=== PATIENT | female | born 1990 | race Caucasian/White ===

== ENCOUNTER 2018-08-17 11:02 | Inpatient (IN) | payer OTHER ==
[2018-08-17 11:11] VITALS: BMI 24.9
[2018-08-17] MEDS ORDERED: diphenhydrAMINE HCL 25 MG CAPSULE (FP) PO ONE ×2 (11:20→11:26)
--- NOTE | 2018-08-17 11:20 | PDOC ---
History of Present Illness - General History Source: Patient Exam Limitations: No Limitations - History of Present Illness Initial Comments: 08/17/18 11:30 The patient is a 28 year old female, with a significant PMH of lupus, acne (on Cephalexin for 3 weeks), who presents to the emergency department via walk-in with shortness of breath, chest tightness, generalized itchiness, tingling in fingertips beginning approx 2 hours ago. The patient states this morning she took her Amoxicillin antibiotics together with her Cephalexin antibiotics around 9 am and began experiencing the allergic reaction-like symptoms after. The patient states she was started on Amoxicillin 3 days ago for a throat infection along with Tamiflu for complaints of body aches, fevers and chills which began on Tuesday. The patient states prior to arrival she took 25 mg Benadryl PO with minimal relief of her symptoms approx 1 hour ago. The patient denies chest pain, palpitations, headache and dizziness. Denies recent fever, chills, nausea, vomit, diarrhea and constipation. Denies dysuria, frequency, urgency and hematuria. Allergies: NKA <Wild Gastelum - Last Filed: 08/17/18 15:28> <Jerardo Winters - Last Filed: 08/17/18 17:14> - General Chief Complaint: Allergic Reaction Stated Complaint: ALLERGIC REACTION Time Seen by Provider: 08/17/18 11:15 Past History <Wild Gastelum - Last Filed: 08/17/18 15:28> - Past Medical History COPD: No Other medical history: lupus - Suicide/Smoking/Psychosocial Hx Smoking History: Never smoked Have you smoked in the past 12 months: No Information on smoking cessation initiated: No Hx Alcohol Use: No Drug/Substance Use Hx: No Substance Use Type: None <Jerardo Winters - Last Filed: 08/17/18 17:14> - Past Medical History Allergies/Adverse Reactions: Allergies Allergy/AdvReac Type Severity Reaction Status Date / Time No Known Allergies Allergy Verified 08/17/18 11:05 Review of Systems - Review of Systems Comments:: 08/17/18 11:32 A complete review of 10 out of 10 review of systems is taken and is negative apart from what is previously mentioned below and in the HPI. <Wild Gastelum - Last Filed: 08/17/18 15:28> *Physical Exam - Vital Signs Last Vital Signs Temp Pulse Resp BP Pulse Ox 98.0 F 91 H 18 126/68 100 08/17/18 11:05 08/17/18 11:05 08/17/18 11:05 08/17/18 11:05 08/17/18 11:05 - Physical Exam Comments: 08/17/18 11:32 Vitals: Triage vital signs reviewed General Appearance: (+) Anxious. No acute distress, well nourished, well developed Head: Atraumatic Eyes: Pupils equal reactive round, extraocular movement intact Nose: Nares patent bilaterally; no nasal congestion Throat: Posterior oropharynx without erythema, mucous membranes moist Neck: Supple; No nuchal rigidity Chest Wall: Nontender Cardiac: Regular rate and rhythm, no murmurs, no rubs, no gallops Lungs: Clear to auscultation bilateral, good air movement bilaterally Abdomen: Soft, nondistended, normal bowel sounds, nontender to palpation Rectal: Exam deferred Extremities: Full range of motion to all extremities, no cyanosis, clubbing, or edema Skin: Warm and dry, no rashes or lesions, no rash, no petechiae Neuro: AOX3; Cranial Nerves 2-12 grossly intact, Strength intact to all extremities, Sensation intact to all extremities Psych: Normal mood, normal affect <Wild Gastelum - Last Filed: 08/17/18 15:28> - Vital Signs Last Vital Signs Temp Pulse Resp BP Pulse Ox 98.0 F 91 H 18 126/68 100 08/17/18 11:05 08/17/18 11:05 08/17/18 11:05 08/17/18 11:05 08/17/18 11:05 <Jerardo Winters - Last Filed: 08/17/18 17:14> ED Treatment Course - LABORATORY CBC & Chemistry Diagram: 08/17/18 12:53 08/17/18 12:53 - Medications Given in the ED: ED Medications Discontinued Medications Generic Name Dose Route Start Last Admin Trade Name Freq PRN Reason Stop Dose Admin Diphenhydramine HCl 25 mg 08/17/18 11:20 08/17/18 11:29 Benadryl - PO 08/17/18 11:21 25 mg ONCE ONE Administration <Wild Gastelum - Last Filed: 08/17/18 15:28> - LABORATORY CBC & Chemistry Diagram: 08/17/18 12:53 08/17/18 12:53 <Jerardo Winters - Last Filed: 08/17/18 17:14> Medical Decision Making - Medical Decision Making 08/17/18 11:32 Patient is a 28 year old female, with history of lupus, acne (on Cephalexin for 3 weeks), presents to the emergency department via walk-in with shortness of breath, chest tightness, generalized itchiness, tingling in fingertips beginning approx 2 hours ago. Plan: Meds, O2 therapy. <Wild Gastelum - Last Filed: 08/17/18 15:28> - Critical Care Time Total Critical Care Time (minutes): 45 Critical Care Statement: The care of this patient involved high complexity decision making to prevent further life threatening deterioration of the patient 's condition and/or to evaluate & treat vital organ system(s) failure or risk of failure. - Medical Decision Making 28 years old healthy except for lupus and acne presents with now six-day history of fever chills body aches headache neckache. Neck is supple on examination patient has been treated with amoxicillin and Tamiflu. Low suspicion at this time for bacterial meningitis Yesterday patient was afebrile today fever returned. Recent travel to [place] endorses bug bites no known tick exposures On examination patient with chills laboratory analysis demonstrates neutropenia not neutropenic, rectal temperature was 100.4 Dr. Mccracken infectious disease consulted, no indication for LP at this time given duration of symptoms more likely diagnosis her differential diagnosis is viral illness vrs parasite illness vrs HIV Blood cultures have been sent broad-spectrum antibiotics have been started infectious disease will consult. Reconsider LP if any change in patient's clinical presentation We'll to medicine/ICU for further management. <Jerardo Winters - Last Filed: 08/17/18 17:14> *DC/Admit/Observation/Transfer - Attestations Scribe Attestion: 08/17/18 11:34 Documentation prepared by Wild Gastelum, acting as medical biller/coder for Jerardo Winters MD. <Wild Gastelum - Last Filed: 08/17/18 15:28> - Discharge Dispostion Decision to Admit order: Yes <Jerardo Winters - Last Filed: 08/17/18 17:14> Diagnosis at time of Disposition: Fever Qualifiers: Fever type: unspecified Qualified Code(s): R50.9 - Fever, unspecified - Discharge Dispostion Condition at time of disposition: Fair
[2018-08-17] MEDS ORDERED: SODIUM CHLORIDE 0.9% 1000 ML INFUS.BAG IV ONE ×2 (12:36→15:41)
[2018-08-17] MEDS ORDERED: ACETAMINOPHEN 1000 MG/100 ML VIAL (NON FORMULARY) IVPB ONE (12:55)
[2018-08-17] MEDS ORDERED: ACETAMINOPHEN INJECTION 100 ML IVPB ONE (12:58)
[2018-08-17 13:04] LABS: BASO % 0.3 % (0-2.0); EOS % 0.1 % (0-4.5); HEMATOCRIT 38.8 % (32.4-45.2); HEMOGLOBIN 12.8 GM/dL (10.7-15.3); LYMPH % 28.4 % (8-40); MCH 26.3 pg (25.7-33.7); MCHC 32.9 g/dl (32.0-36.0); MEAN CELL VOLUME 79.9 fl (80-96); MEAN PLT VOLUME 7.4 fl (7.5-11.1); MONO % 0.5 % (3.8-10.2); NEUT % 70.7 % (42.8-82.8); PLATELET COUNT 253 K/MM3 (134-434); RBC 4.86 M/mm3 (3.60-5.2); RDW 12.7 % (11.6-15.6)
[2018-08-17 13:26] LABS: WHITE BLOOD COUNT 0.8 K/mm3 (4.0-10.0)
[2018-08-17 13:45] LABS: ALK PHOS 96 U/L (45-117); ANION GAP 10 MMOL/L (8-16); BILIRUBIN,TOTAL 0.3 mg/dL (0.2-1); BLOOD UREA NITROGEN 18 mg/dL (7-18); CALCIUM 8.5 mg/dL (8.5-10.1); CHLORIDE 101 mmol/L (98-107); CO2 24 mmol/L (21-32); CREATININE 0.8 mg/dL (0.55-1.3); GLUCOSE,RANDOM 100 mg/dL (74-106); POTASSIUM 3.7 mmol/L (3.5-5.1); SGOT/AST 108 U/L (15-37); SGPT/ALT 100 U/L (13-61); SODIUM 136 mmol/L (136-145); TOT PROT 7.5 g/dl (6.4-8.2)
[2018-08-17 14:30] LABS: ACANTHOCYTES 0; ANISOCYTOSIS 0; HELMET CELLS 0; HOWELL-JOLLY BODIES 0; MACROCYTOSIS 0; OVALOCYTE 0; PLATELET ESTIMATE NORMAL; ROULEAU 0; SICKELED CELLS 0; TARGET CELLS 0; TEAR DROP CELLS 0; TOXIC GRANULATION 0
[2018-08-17 14:56] LABS: HCG,QUALITATIVE URINE Negative
[2018-08-17] MEDS ORDERED: VANCOMYCIN 1 GM PREMIX - 1 GM/200 ML BAG IVPB ONE (14:56)
[2018-08-17] MEDS ORDERED: PIPERACILLIN/TAZOB 3.375 GM 3.375 GM in DEXTROSE 5%-WATER - 50 ML IVPB ONE (14:56)
[2018-08-17 15:03] LABS: URINE APPEARANCE SLCLOUDY; URINE BILIRUBIN NEGATIVE (<2.0 mg/dL); URINE COLOR LTYELLOW; URINE GLUCOSE (UA) NEGATIVE (NEGATIVE); URINE KETONE NEGATIVE (NEGATIVE); URINE NITRITE NEGATIVE (NEGATIVE); URINE PROTEIN NEGATIVE (NEGATIVE); URINE UROBILINOGEN NEGATIVE mg/dL (0.2-1.0)
[2018-08-17 15:07] LABS: URINE LEUK ESTERASE 2+ (NEGATIVE)
[2018-08-17 15:08] LABS: EPI CELLS FEW /HPF (FEW); URINE HYALINE CAST 1 /lpf
[2018-08-17] MEDS ORDERED: PIPERACILLIN/TAZOB 3.375 GM 3.375 GM/50 ML BAG IVPB ONE ×2 (15:17→15:25)
--- NOTE | 2018-08-17 15:36 | HP ---
CHIEF COMPLAINT: Generalized itchiness, SOB PCP: None HISTORY OF PRESENT ILLNESS: 28 year-old female with a PMH significant for Hepatitis B, lupus and acne presented to the ED via walk-in with shortness of breath, chest tightness, generalized itchiness, and tingling in fingertips x 2 hours. The patient stated this morning she took prescribed amoxicillin together with prescribed cephalexin and very shortly thereafter began experiencing the allergic reaction -like symptoms. Today was the first day that she took those two antibiotics on the same day. She took benadryl PO at home with minimal relief so she came to the ED. While in ED patient developed rigors. The patient was prescribed cephalexin about 3 weeks ago for an acne flare. She took the medication without any problem up until 08/19. She resumed the medication this morning. Patient traveled to [place] on 08/06. On 08/12 while still in [place] she developed a sore throat, headache, body aches, subjective fever and chills. She was prescribed amoxicillin and Tamiflu which she started that day and has continued every day since. On 08/13 she flew back to [place]. On 08/14 she went to an urgent care and was prescribed amoxicillin and Tamiflu. While in [place] she had multiple bug bites which she thinks were mosquito bites. She traveled with her boyfriend who is well. At the time of this ICU admission patient has developed a full-body erythematous rash, face, arms, legs. She complains of worsening sore throat and she has a mild cough. Emergent benadryl, solumedrol, pepcid, and albuterol being given. Additional peripheral access. Received 2L NS in ED, will bolus another 2L now. 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 Alcohol: no Drugs: no Family History: Allergies No Known Allergies Allergy (Verified 08/17/18 11:05) HOME MEDICATIONS: On no regular medications REVIEW OF SYSTEMS CONSTITUTIONAL: Present: +fever, chills Absent: diaphoresis, generalized weakness, malaise, loss of appetite, weight change HEENT: Present: +sore throat Absent: rhinorrhea, nasal congestion, throat swelling, difficulty swallowing, mouth swelling, ear pain, eye pain, visual changes CARDIOVASCULAR: Absent: chest pain, syncope, palpitations, irregular heart rate, lightheadedness , peripheral edema RESPIRATORY: Present: +SOB Absent: cough, dyspnea with exertion, orthopnea, wheezing, stridor, hemoptysis GASTROINTESTINAL: Absent: abdominal pain, abdominal distension, nausea, vomiting, diarrhea, constipation, melena, hematochezia GENITOURINARY: Absent: dysuria, frequency, urgency, hesitancy, hematuria, flank pain, genital pain MUSCULOSKELETAL: Present: +body aches Absent: myalgia, arthralgia, joint swelling, back pain, neck pain SKIN: Present: +rash, itching Absent: rash, itching, pallor HEMATOLOGIC/IMMUNOLOGIC: Absent: easy bleeding, easy bruising, lymphadenopathy, frequent infections ENDOCRINE: Absent: unexplained weight gain, unexplained weight loss, heat intolerance, cold intolerance NEUROLOGIC: Present: +headache Absent: headache, focal weakness or paresthesias, dizziness, unsteady gait, seizure, mental status changes, bladder or bowel incontinence PSYCHIATRIC: Absent: anxiety, depression, suicidal or homicidal ideation, hallucinations. PHYSICAL EXAMINATION Vital Signs - 24 hr 08/17/18 08/17/18 08/17/18 11:05 12:48 13:06 Temperature 98.0 F 100.4 F H 100.4 F H Pulse Rate 91 H Respiratory 18 Rate Blood Pressure 126/68 O2 Sat by Pulse 100 Oximetry (%) GENERAL: Awake, alert, and fully oriented; in mild distress secondary to itching and body aches HEAD: Lips mildly swollen, erythematous rash across face EYES: Pupils equal, round and reactive to light, extraocular movements intact, sclera anicteric, conjunctiva clear. No lid lag. EARS, NOSE, THROAT: Ears normal, nares patent, oropharynx clear without exudates. Moist mucous membranes. No tongue swelling NECK: Normal range of motion, supple without lymphadenopathy, JVD, or masses. LUNGS: Breath sounds equal, clear to auscultation bilaterally. No wheezes, and no crackles. No accessory muscle use. HEART: Regular rate and rhythm, normal S1 and S2 without murmur, rub or gallop. ABDOMEN: Soft, nontender, not distended MUSCULOSKELETAL: Normal range of motion at all joints. No bony deformities or tenderness. No CVA tenderness. UPPER EXTREMITIES: 2+ pulses, warm, well-perfused. No cyanosis. No clubbing. No peripheral edema. LOWER EXTREMITIES: 2+ pulses, warm, well-perfused. No calf tenderness. No peripheral edema. NEUROLOGICAL: Cranial nerves II-XII intact. Normal speech. SKIN: Erythematous rash face, arms, legs Laboratory Results - last 24 hr 08/17/18 08/17/18 08/17/18 12:53 12:53 14:31 WBC 0.8 L* RBC 4.86 Hgb 12.8 Hct 38.8 MCV 79.9 L MCH 26.3 MCHC 32.9 RDW 12.7 Plt Count 253 MPV 7.4 L Absolute Neuts (auto) 0.6 L Neutrophils % 70.7 Neutrophils % (Manual) 58.3 Band Neutrophils % 8.3 Lymphocytes % 28.4 Lymphocytes % (Manual) 25.0 Monocytes % 0.5 L Monocytes % (Manual) 4 Eosinophils % 0.1 Eosinophils % (Manual) 0.0 Basophils % 0.3 Basophils % (Manual) 0.0 Myelocytes % (Man) 0 Promyelocytes % (Man) 0 Blast Cells % (Manual) 0 Nucleated RBC % 0 Metamyelocytes 0 Hypochromia 0 Toxic Granulation 0 Dohle Bodies 0 Platelet Estimate Normal Polychromasia 0 Poikilocytosis 0 Basophilic Stippling 0 Anisocytosis 0 Microcytosis 0 Macrocytosis 0 Spherocytes 0 Sickle Cells 0 Target Cells 0 Tear Drop Cells 0 Ovalocytes 0 Stomatocytes 0 Helmet Cells 0 Huang-[place] Bodies 0 [place] Rings 0 Joyce Cells 0 Acanthocytes (Spur) 0 Rouleaux 0 Fragmented RBCs 0 Schistocytes 0 Sodium 136 Potassium 3.7 Chloride 101 Carbon Dioxide 24 Anion Gap 10 BUN 18 Creatinine 0.8 Creat Clearance w eGFR > 60 Random Glucose 100 Calcium 8.5 Total Bilirubin 0.3 AST 108 H ALT 100 H Alkaline Phosphatase 96 Creatine Kinase 71 Total Protein 7.5 Albumin 3.0 L Beta HCG, Quant Urine Color Ltyellow Urine Appearance Slcloudy Urine pH 5.0 Ur Specific Girard 1.015 Urine Protein Negative Urine Glucose (UA) Negative Urine Ketones Negative Urine Blood Negative Urine Nitrite Negative Urine Bilirubin Negative Urine Urobilinogen Negative Ur Leukocyte Esterase 2+ H Urine WBC (Auto) 12 Urine RBC (Auto) 1 Ur Epithelial Cells Few Hyaline Casts 1 Urine HCG, Qual Negative 08/17/18 14:31 WBC RBC Hgb Hct MCV MCH MCHC RDW Plt Count MPV Absolute Neuts (auto) Neutrophils % Neutrophils % (Manual) Band Neutrophils % Lymphocytes % Lymphocytes % (Manual) Monocytes % Monocytes % (Manual) Eosinophils % Eosinophils % (Manual) Basophils % Basophils % (Manual) Myelocytes % (Man) Promyelocytes % (Man) Blast Cells % (Manual) Nucleated RBC % Metamyelocytes Hypochromia Toxic Granulation Dohle Bodies Platelet Estimate Polychromasia Poikilocytosis Basophilic Stippling Anisocytosis Microcytosis Macrocytosis Spherocytes Sickle Cells Target Cells Tear Drop Cells Ovalocytes Stomatocytes Helmet Cells Huang-[place] Bodies [place] Rings Joyce Cells Acanthocytes (Spur) Rouleaux Fragmented RBCs Schistocytes Sodium Potassium Chloride Carbon Dioxide Anion Gap BUN Creatinine Creat Clearance w eGFR Random Glucose Calcium Total Bilirubin AST ALT Alkaline Phosphatase Creatine Kinase Total Protein Albumin Beta HCG, Quant < 1.0 Urine Color Urine Appearance Urine pH Ur Specific Girard Urine Protein Urine Glucose (UA) Urine Ketones Urine Blood Urine Nitrite Urine Bilirubin Urine Urobilinogen Ur Leukocyte Esterase Urine WBC (Auto) Urine RBC (Auto) Ur Epithelial Cells Hyaline Casts Urine HCG, Qual ASSESSMENT/PLAN: 28 year-old female with a PMH significant for lupus and acne, taking two antibiotics and Tamiflu, presented to the ED with an apparent drug reaction. Found to be neutropenic and febrile. 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 --she presented to ED with what appeared to have been a mild allergic reaction afer taking amoxicillin and cephalexin together; her symptoms improved with benadryl; --when patient was found to be neutropenic with a fever, she was given Zosyn ; as the dose was finishing her BP dropped precipitously and she developed total body itching, swelling of lips, and a rash --aggressively fluid resuscitated, total 4L NS with stabilization of BP --allergies noted in EMR Neutropenia Fever --from 08/12 (in [place]) to 08/15 (back in [place]) had viral symptoms: headache, bodyaches, fever, sweats, chills, then felt back to self --WBC 0.8k on admission, Tm 100.4 --viral v. tick-borne v. lupus flare --continue Vanc and doxy --ID consult --rhem consult FEN Fluids: Fluid resuscitate x 4L; continue NS @ 125mL/hr Electrolytes: replete as indicated Nutrition: neutropenic diet DVT prophylaxis: lovenox Dispo: continues to require inpatient care. Neutropenic precautions. Full code. Visit type - Emergency Visit Emergency Visit: Yes ED Registration Date: 08/17/18 Care time: The patient presented to the Emergency Department on the above date and was hospitalized for further evaluation of their emergent condition. - New Patient This patient is new to me today: Yes Date on this admission: 08/18/18 - Critical Care Critical Care patient: Yes Total Critical Care Time (in minutes): 90 Critical Care Statement: The care of this patient involved high complexity decision making to prevent further life threatening deterioration of the patient 's condition and/or to evaluate & treat vital organ system(s) failure or risk of failure. Hospitalist Screening - Colonoscopy Questionnaire Colonoscopy Questionnaire: Colonoscopy Questionnaire - Patient: 50 - 75 years old and never had a screening colonoscopy: No History of colon or rectal polyps, or CA: No History of IBD, Crohn's disease or UC: No History of abdominal radiation therapy as a child: No - Relative: 1 with colon or rectal CA, or polyps at age 60 or younger: Unknown Colon or rectal CA diagnosed at age 45 or younger: Unknown Multiple relatives with colon or rectal CA: Unknown - Outcome: Screening Result: Negative Screen
[2018-08-17] MEDS ORDERED: KETOROLAC TROMETHAMINE 30 MG/1 ML VIAL ONE (15:40)
[2018-08-17] MEDS ORDERED: KETOROLAC TROMETHAMINE 30 MG/1 ML VIAL IVPUSH ONE (15:40)
[2018-08-17] MEDS ORDERED: VANCOMYCIN 1 GRAM (PRE-DOCKED) 1,000 MG/250 ML BAG IVPB ONE (15:43)
[2018-08-17 16:26] LABS: INR 1.02 (0.83-1.09); PROTHROMBIN TIME (PATIENT) 11.5 SEC (9.7-13.0)
[2018-08-17] MEDS ORDERED: DOXYCYCLINE INJECTION 100 MG in DEXTROSE 5%-WATER - 100 ML IVPB ONE (16:41)
--- NOTE | 2018-08-17 16:43 | CON.ID ---
Consult Consult Specialty:: infectious diseases Referred by:: Reason for Consultation:: sepsis,neutropenia,fever - History of Present Illness Chief Complaint: not feeling well,feels something is happening inside her body History of Present Illness: 28 year-old female with a PMH , lupus and acne presented to the ED with shortness of breath, chest tightness, generalized itchiness, and tingling in fingertips x 2 hours. according to the patient she was on amoxicillin which she has been taking for couple of days for sore throat and was feeling better.patient also was taking tamiflu patient decided to restart her cefodroxil which she takes for acne patient says couple of hours after she took cefodroxil she started feeling weird and was feeling tingling in the body and decided to come to the hospital Now the patient is looking septic also she is running a low bp The patient was prescribed cephalexin about 3 weeks ago for an acne flare. She took the medication without any problem up until 08/19. She resumed the medication this morning. Patient traveled to [place] on 08/06. On 08/12 while still in [place] she developed a sore throat, headache, body aches, subjective fever and chills. While in [place] she had multiple bug bites which she thinks were mosquito bites. She traveled with her boyfriend who is well. 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 - History Source History Provided By: Patient Limitations to Obtaining History: No Limitations - Alcohol/Substance Use Hx Alcohol Use: No - Smoking History Smoking history: Never smoked Have you smoked in the past 12 months: No Home Medications - Allergies Allergies/Adverse Reactions: Allergies Allergy/AdvReac Type Severity Reaction Status Date / Time amoxicillin Allergy Severe anaphylaxis, Verified 08/17/18 19:50 shock piperacillin [From Zosyn] Allergy Verified 08/17/18 19:51 tazobactam [From Zosyn] Allergy Verified 08/17/18 19:51 Review of Systems - Review of Systems Constitutional: reports: Chills, Fever Eyes: reports: No Symptoms HENT: reports: No Symptoms Neck: reports: Pain on Movement Cardiovascular: reports: No Symptoms Respiratory: reports: No Symptoms Gastrointestinal: reports: No Symptoms Genitourinary: reports: No Symptoms Breasts: reports: No Symptoms Reported Musculoskeletal: reports: No Symptoms Integumentary: reports: Other (feeling of itching all over the body) Neurological: reports: No Symptoms Endocrine: reports: No Symptoms Hematology/Lymphatic: reports: No Symptoms Psychiatric: reports: No Symptoms Physical Exam Vital Signs: Vital Signs Temperature 99.4 F 08/17/18 16:42 Pulse Rate 103 H 08/17/18 16:42 Respiratory Rate 16 08/17/18 16:42 Blood Pressure 97/46 L 08/17/18 16:42 O2 Sat by Pulse Oximetry (%) 98 08/17/18 16:42 Constitutional: Yes: Well Nourished, Calm, Mild Distress Eyes: Yes: Conjunctiva Clear HENT: Yes: Atraumatic, Normocephalic Neck: Yes: Supple, Tenderness (while moving the neck) Cardiovascular: Yes: Regular Rate and Rhythm Respiratory: Yes: Regular, CTA Bilaterally Gastrointestinal: Yes: Normal Bowel Sounds, Soft Musculoskeletal: Yes: WNL Extremities: Yes: WNL Neurological: Yes: Alert, Oriented Psychiatric: Yes: Alert, Oriented Labs: CBC, BMP 08/17/18 12:53 08/17/18 12:53 Imaging - Results Chest X-ray: Report Reviewed Assessment/Plan this patient coming from travelling and has fallen sick with sore throat who was started by her primary on amoxicillin and tamiflu,coming to the er because of feeling wierd with itching sensation. has not developed any rash but feels she has itching all over the body including her vagina also she has become severely neutropenic patient does look very sick looking at the patients picture i do suspect patient might be having viral illness hiv or infection with babesiosis plan work up for parasitic infection hiv ct of the head will continue broad spectrum abx will add doxy i am leaning more towards viral illness because of her severe neutropenia though other causes cannot be ruled out also there could be chance that this is allergic reaction but i have low suspicion for the same very close watch of the patient once we have all results will decide further plan
[2018-08-17] MEDS ORDERED: SODIUM CHLORIDE 1,000 ML IV SCH ×3 (17:00→21:30)
[2018-08-17] MEDS ORDERED: DOXYCYCLINE HYCLATE 100 MG VIAL ONE (17:04)
[2018-08-17] MEDS ORDERED: ACETAMINOPHEN 325 MG TABLET (FP) PO PRN (17:29)
[2018-08-17] MEDS ORDERED: METOCLOPRAMIDE HCL INJECTION 10 MG/2 ML VIAL IVPUSH PRN (17:29)
[2018-08-17] MEDS ORDERED: PIPERACILLIN/TAZOB 2.25 GM 2.25 GM in DEXTROSE 5%-WATER - 50 ML IVPB SCH ×2 (18:00→20:30)
--- NOTE | 2018-08-17 18:08 | CONSULT ---
Consultation: REQUESTING PROVIDER: Dr Winters CONSULT REQUEST: We have been asked to medically evaluate this patient for admission to the ICU> HISTORY OF PRESENT ILLNESS: Crissy Vanegas is a 28yo woman with a PMH of mild lupus (sx body aches, positive antibody) and acne treated with cefalexin. She presented to the ED today with one week of body aches, headache, sore throat, and fever. Ms Vanegas reports that she was recently in [place] last week. She was careful to drink bottled water and did not note any unusual insect bites during her trip. On the last day, she started experiencing generalized body aches, headache, sore throat, and subjective fever. She took ibuprofen "around the clock" and saw a doctor on Tuesday when she returned home. She had a rapid strep test and a flu test, both negative, but was started on amoxicillin and Tamiflu at that time. She has continued to take these as prescribed. Ms Vanegas reports that her symptoms persisted, though she has not felt feverish since Tuesday. Today, she took her amoxicillin and previously prescribed cefalexin at the same time; she additionally took ibuprofen this morning for worsening body aches and headache. She began to experience full body itching and felt that her lips, face , hands, and feet were swollen. She was concerned for an allergic reaction and took Tylenol PM without improvement. She decided to come to the ED. On the way to the hospital, she began to have shaking as well. Her ED course was notable for a generally benign physical exam, no skin rash or hives, temperature to 100.4 (after acetaminophen and ibuprofen earlier today), WBC 0.8 with ANC 600, lactate 2.5, likely positive UA. She was tachycardic to the low 100's and borderline hypotensive with SBP in the 90's. ID was consulted and sent tests for babesia, lyme, erlichia, HIV and requested an US of the spleen due to concern for babesia. Per Ms Vanegas, she feels somewhat less shaky than previously but continues to have full-body itching including "inside her vagina" that has not improved at all after receiving a total of 75mg diphenhydramine. She continues to feel that her body, especially her face, lips, hands and feet, are swollen. Her mother, at bedside, agrees that her lips appear swollen. REVIEW OF SYSTEMS: General: +Fevers, +generalized body aches, no appetite or weight change HEENT: No changes in vision, no changes in hearing, no congestion. +SCHMITT, +sore throat, +neck pain CV: No chest pain, no palpitations, no LE edema Pulm: No SOB, no cough, no wheezing GI: No nausea or vomiting, no change in bowel habits, no melena : No frequency, no urgency, no dysuria Musc: No back pain, no joint swelling, no recent injury Skin: No rash, no lesions, no erythema. +Itching Endo: No excessive thirst, no heat/cold intolerance Heme: No unusual bruising or bleeding, no swollen glands Neuro: No syncope, no numbness/tingling, no focal weakness Vasc: No claudication Psych: No recent change in mood, no SI or HI PHYSICAL EXAMINATION Vital Signs - 24 hr 08/17/18 08/17/18 08/17/18 11:05 12:48 13:06 Temperature 98.0 F 100.4 F H 100.4 F H Pulse Rate 91 H Pulse Rate [ Apical] Respiratory 18 Rate Blood Pressure 126/68 Blood Pressure [Right] O2 Sat by Pulse 100 Oximetry (%) 08/17/18 08/17/18 16:42 17:17 Temperature 99.4 F Pulse Rate Pulse Rate [ 103 H 105 H Apical] Respiratory 16 18 Rate Blood Pressure Blood Pressure 97/46 L 95/47 L [Right] O2 Sat by Pulse 98 98 Oximetry (%) General: Comfortable, no acute distress, very mildly diaphoretic HEENT: PERRL, EOMI, MMM, voice normal, normal neck ROM, no LAD Cards: Tachycardic, regular, no murmur appreciated Pulm: Comfortable on room air, clear to auscultation bilaterally Abd: Soft, nontender, nondistended : No CVA tenderness Ext: Atraumatic. No LE edema. ROM intact. Strength 5/5 and equal bilaterally Vasc: Extremities WWP. Palpable radial and pedal pulses bilaterally Skin: Normal color, no rashes or lesions Neuro: A&Ox3, CN grossly intact, normal speech, motor/sensory grossly intact and symmetric Psych: Mood appropriate to situation Laboratory Results - last 24 hr 08/17/18 08/17/18 08/17/18 12:53 12:53 14:30 WBC 0.8 L* RBC 4.86 Hgb 12.8 Hct 38.8 MCV 79.9 L MCH 26.3 MCHC 32.9 RDW 12.7 Plt Count 253 MPV 7.4 L Absolute Neuts (auto) 0.6 L Neutrophils % 70.7 Neutrophils % (Manual) 58.3 Band Neutrophils % 8.3 Lymphocytes % 28.4 Lymphocytes % (Manual) 25.0 Monocytes % 0.5 L Monocytes % (Manual) 4 Eosinophils % 0.1 Eosinophils % (Manual) 0.0 Basophils % 0.3 Basophils % (Manual) 0.0 Myelocytes % (Man) 0 Promyelocytes % (Man) 0 Blast Cells % (Manual) 0 Nucleated RBC % 0 Metamyelocytes 0 Hypochromia 0 Toxic Granulation 0 Dohle Bodies 0 Platelet Estimate Normal Polychromasia 0 Poikilocytosis 0 Basophilic Stippling 0 Anisocytosis 0 Microcytosis 0 Macrocytosis 0 Spherocytes 0 Sickle Cells 0 Target Cells 0 Tear Drop Cells 0 Ovalocytes 0 Stomatocytes 0 Helmet Cells 0 Huang-[place] Bodies 0 [place] Rings 0 Joyce Cells 0 Acanthocytes (Spur) 0 Rouleaux 0 Fragmented RBCs 0 Schistocytes 0 PT with INR INR PTT (Actin FS) Sodium 136 Potassium 3.7 Chloride 101 Carbon Dioxide 24 Anion Gap 10 BUN 18 Creatinine 0.8 Creat Clearance w eGFR > 60 Random Glucose 100 Lactic Acid Calcium 8.5 Total Bilirubin 0.3 AST 108 H ALT 100 H Alkaline Phosphatase 96 Creatine Kinase 71 Total Protein 7.5 Albumin 3.0 L Beta HCG, Quant Urine Color Urine Appearance Urine pH Ur Specific [place] Urine Protein Urine Glucose (UA) Urine Ketones Urine Blood Urine Nitrite Urine Bilirubin Urine Urobilinogen Ur Leukocyte Esterase Urine WBC (Auto) Urine RBC (Auto) Ur Epithelial Cells Hyaline Casts Urine HCG, Qual HIV 1&2 Antibody Screen Negative HIV P24 Antigen Negative 08/17/18 08/17/18 08/17/18 14:31 14:31 15:45 WBC RBC Hgb Hct MCV MCH MCHC RDW Plt Count MPV Absolute Neuts (auto) Neutrophils % Neutrophils % (Manual) Band Neutrophils % Lymphocytes % Lymphocytes % (Manual) Monocytes % Monocytes % (Manual) Eosinophils % Eosinophils % (Manual) Basophils % Basophils % (Manual) Myelocytes % (Man) Promyelocytes % (Man) Blast Cells % (Manual) Nucleated RBC % Metamyelocytes Hypochromia Toxic Granulation Dohle Bodies Platelet Estimate Polychromasia Poikilocytosis Basophilic Stippling Anisocytosis Microcytosis Macrocytosis Spherocytes Sickle Cells Target Cells Tear Drop Cells Ovalocytes Stomatocytes Helmet Cells Huang-[place] Bodies [place] Rings Joyce Cells Acanthocytes (Spur) Rouleaux Fragmented RBCs Schistocytes PT with INR INR PTT (Actin FS) Sodium Potassium Chloride Carbon Dioxide Anion Gap BUN Creatinine Creat Clearance w eGFR Random Glucose Lactic Acid 2.5 H* Calcium Total Bilirubin AST ALT Alkaline Phosphatase Creatine Kinase Total Protein Albumin Beta HCG, Quant < 1.0 Urine Color Ltyellow Urine Appearance Slcloudy Urine pH 5.0 Ur Specific [place] 1.015 Urine Protein Negative Urine Glucose (UA) Negative Urine Ketones Negative Urine Blood Negative Urine Nitrite Negative Urine Bilirubin Negative Urine Urobilinogen Negative Ur Leukocyte Esterase 2+ H Urine WBC (Auto) 12 Urine RBC (Auto) 1 Ur Epithelial Cells Few Hyaline Casts 1 Urine HCG, Qual Negative HIV 1&2 Antibody Screen HIV P24 Antigen 08/17/18 15:45 WBC RBC Hgb Hct MCV MCH MCHC RDW Plt Count MPV Absolute Neuts (auto) Neutrophils % Neutrophils % (Manual) Band Neutrophils % Lymphocytes % Lymphocytes % (Manual) Monocytes % Monocytes % (Manual) Eosinophils % Eosinophils % (Manual) Basophils % Basophils % (Manual) Myelocytes % (Man) Promyelocytes % (Man) Blast Cells % (Manual) Nucleated RBC % Metamyelocytes Hypochromia Toxic Granulation Dohle Bodies Platelet Estimate Polychromasia Poikilocytosis Basophilic Stippling Anisocytosis Microcytosis Macrocytosis Spherocytes Sickle Cells Target Cells Tear Drop Cells Ovalocytes Stomatocytes Helmet Cells Huang-[place]in Bodies [place] Rings [place] Cells Acanthocytes (Spur) Rouleaux Fragmented RBCs Schistocytes PT with INR 11.50 INR 1.02 PTT (Actin FS) 24.0 L Sodium Potassium Chloride Carbon Dioxide Anion Gap BUN Creatinine Creat Clearance w eGFR Random Glucose Lactic Acid Calcium Total Bilirubin AST ALT Alkaline Phosphatase Creatine Kinase Total Protein Albumin Beta HCG, Quant Urine Color Urine Appearance Urine pH Ur Specific [place] Urine Protein Urine Glucose (UA) Urine Ketones Urine Blood Urine Nitrite Urine Bilirubin Urine Urobilinogen Ur Leukocyte Esterase Urine WBC (Auto) Urine RBC (Auto) Ur Epithelial Cells Hyaline Casts Urine HCG, Qual HIV 1&2 Antibody Screen HIV P24 Antigen Active Medications Generic Name Dose Route Start Last Admin Trade Name Hiroq PRN Reason Stop Dose Admin Acetaminophen 650 mg 08/17/18 17:29 Tylenol - PO Q6H PRN FEVER Chlorhexidine Gluconate 1 applic 08/17/18 22:00 Hibiclens For Decolonization - TP HS AG Enoxaparin Sodium 40 mg 08/18/18 10:00 Lovenox - SQ DAILY AG Vancomycin HCl 1,000 mg/ 250 mls @ 166.667 mls/hr 08/18/18 03:00 Dextrose IVPB Q12H AG Protocol Piperacillin Sod/Tazobactam 50 mls @ 100 mls/hr 08/17/18 18:00 Sod 2.25 gm/ Dextrose IVPB Q8H-IV AG Protocol Vancomycin HCl 1,000 mg/ 250 mls @ 166.667 mls/hr 08/18/18 03:00 Dextrose IVPB 08/18/18 04:29 ONCE ONE Protocol Piperacillin Sod/Tazobactam 50 mls @ 100 mls/hr 08/17/18 20:30 Sod 2.25 gm/ Dextrose IVPB 08/18/18 02:29 Q8H-IV AG Protocol Sodium Chloride 1,000 mls @ 100 mls/hr 08/17/18 17:00 Normal Saline - IV ASDIR AG Metoclopramide HCl 10 mg 08/17/18 17:29 Reglan Injection - IVPUSH Q8H PRN NAUSEA AND/OR VOMITING Mupirocin 1 applic 08/17/18 22:00 Bactroban Ointment (For Decolonization) - NS 08/22/18 21:59 BID AG Oseltamivir Phosphate 75 mg 08/17/18 22:00 Tamiflu - PO 08/22/18 21:59 BID AG ASSESSMENT/PLAN: Crissy Vanegas is a 28yo woman with a PMH of mild SLE and acne who presents with one week of body aches, headache, sore throat, and fevers that began during a trip to [place]. Today she additionally began to experience itching and rigors after taking cefalexin, amoxicillin and ibuprofen. The ICU team was requested to evaluate her for admission due to neutropenic fever, hypotension, tachycardia, and swelling in her face and lips. Neuro: - Acetaminophen PRN for fever or pain - c/o headaches. CT head pending from ED CV: - Mildly tachycardic, possibly due to fever - Borderline hypotensive with SBP in the 90's. - Continue to monitor while receiving IV hydration Pulm: - No concerns - Encourage OOB - IS 10x per hour Heme: - Leukopenia to 0.8 with ANC 600 - Daily CBC with diff GI: - Regular diet - Reglan PRN for nausea/vomiting Renal: - Voiding appropriately ID: - Neutropenic fever - Dr Trujillo following - Pending tests for babesia, lyme, erlichia, HIV - Vanc, zosyn, doxycycline per ID. Continue tamiflu per primary - Blood and urine cultures pending - UA positive - Rapid strep ordered in ED Endo: - No issues Psych: - No issues Musc: - OOB as tolerated PPx: - Low DVT risk, SCD's - No indication for GI ppx FEN: - General diet - NS @100/hr - Replete lytes PRN Dispo: - Monitor in ICU To be discussed with Dr Golden. Priscilla Roldan PGY1 Visit type - Emergency Visit Emergency Visit: Yes ED Registration Date: 08/17/18 Care time: The patient presented to the Emergency Department on the above date and was hospitalized for further evaluation of their emergent condition. - New Patient This patient is new to me today: Yes Date on this admission: 08/17/18 - Critical Care Critical Care patient: Yes Total Critical Care Time (in minutes): 45 Critical Care Statement: The care of this patient involved high complexity decision making to prevent further life threatening deterioration of the patient 's condition and/or to evaluate & treat vital organ system(s) failure or risk of failure.
[2018-08-17] MEDS ORDERED: SODIUM CHLORIDE 0.9% 500 ML INFUS.BAG IV ONE (18:47)
[2018-08-17] MEDS ORDERED: FAMOTIDINE 20 MG/50 ML IVPB 20 MG/50 ML MG IVPB ONE (18:58)
[2018-08-17] MEDS ORDERED: methylPREDNISolone NA SUCC 125 MG/2 ML VIAL IVPUSH ONE (18:58)
[2018-08-17] MEDS ORDERED: ACETAMINOPHEN 1000 MG/100 ML VIAL (NON FORMULARY) IVPB PRN (19:00)
[2018-08-17] MEDS: DOXYCYCLINE INJECTION 100 MG in DEXTROSE 5%-WATER - 100 ML IVPB SCH (20:17)
[2018-08-17] MEDS: SODIUM CHLORIDE 1,000 ML IV SCH ×2 (20:50→21:55)
--- NOTE | 2018-08-17 21:16 | PN ---
Repeat PE for Septic Shock - Vital Signs Vital Signs: Vital Signs Temperature 99.1 F 08/17/18 19:31 Pulse Rate 109 H 08/17/18 19:31 Respiratory Rate 22 H 08/17/18 19:31 Blood Pressure 97/53 L 08/17/18 19:31 O2 Sat by Pulse Oximetry (%) 93 L 08/17/18 20:53 I have reviewed the most recent vital signs: Yes - PE CV for Spetic Shock: Regular Rhythm, S1, S2 Lungs: Lungs Clear, Normal Breath Sounds Vascular: Left Radial: 2+, Right Radial: 2+, Left Doralis Pedis: 2+, Right Dorsalis Pedis: 2+ Capillary Refill: <3 seconds Skin exam: Normal Color, Warm, Dry - Impression Impression: No fluid bolus indicated, pt not hypovolemic
[2018-08-17] MEDS ORDERED: DOXYCYCLINE INJECTION 100 MG in DEXTROSE 5%-WATER - 100 ML IVPB SCH (22:00)
[2018-08-17] MEDS ORDERED: CHLORHEXIDINE GLUCONATE 4% CLEANSER FOR DECOLONIZATION TP SCH (22:00)
[2018-08-17] MEDS: MUPIROCIN 2% TOPICAL OINTMENT FOR DECOLONIZATION NS SCH (22:10)
[2018-08-17] MEDS: methylPREDNISolone NA SUCC 125 MG/2 ML VIAL IVPUSH SCH (22:10)
--- NOTE | 2018-08-17 22:23 | CONSULT ---
Consult - text type - Consultation Consultation Note: The patient is a 28 year old female, with a significant PMH of lupus, acne , who presents to the emergency department via walk-in with shortness of breath, chest tightness, generalized itchiness, tingling in fingertips beginning around 5pm. The patient states this morning she took her Amoxicillin antibiotics together with her Cephalexin antibiotics around 9 am and began experiencing the allergic reaction-like symptoms after. The patient states she was started on Amoxicillin 3 days ago for a throat infection along with Tamiflu for complaints of body aches, fevers and chills which began on Tuesday. The patient states prior to arrival she took 25 mg Benadryl PO with minimal relief of her symptoms approx 1 hour ago. HAd been on keflex for 3 weeks for acne and augmentin for 4 days. Has been feeling unwell since 08/12/18 with generalized bodyaches and fevers. Was well prior to that The patient denies chest pain, palpitations, headache and dizziness. Denies nausea, vomiting, diarrhea and constipation. Denies dysuria, frequency, urgency and hematuria. Allergies: NKA - Past Medical History Other medical history: lupus - Suicide/Smoking/Psychosocial Hx Smoking History: Never smoked Allergies/Adverse Reactions: Allergies Allergy/AdvReac Type Severity Reaction Status Date / Time No Known Allergies Allergy Verified 08/17/18 11:05 - Vital Signs Last Vital Signs Temp Pulse Resp BP Pulse Ox 98.0 F 91 H 18 126/68 100 08/17/18 11:05 08/17/18 11:05 08/17/18 11:05 08/17/18 11:05 08/17/18 11:05 Cor: RSR, No murmurs, No gallops Lungs: Clear to P&A Abd: Soft, Normal bowel sounds, No organomegaly Ext:No significant edema Skin: No rashes, Integument intact Abnormal Lab Results 08/17/18 08/17/18 08/17/18 12:53 12:53 14:31 WBC 0.8 L* MCV 79.9 L MPV 7.4 L Absolute Neuts (auto) 0.6 L Neutrophils % Lymphocytes % Monocytes % 0.5 L PTT (Actin FS) Lactic Acid AST 108 H ALT 100 H Albumin 3.0 L Ur Leukocyte Esterase 2+ H 08/17/18 08/17/18 08/17/18 15:45 15:45 16:02 WBC MCV MPV Absolute Neuts (auto) Neutrophils % Lymphocytes % Monocytes % PTT (Actin FS) 24.0 L Lactic Acid 2.5 H* 3.1 H* AST ALT Albumin Ur Leukocyte Esterase 08/17/18 08/18/18 19:40 05:30 WBC 2.6 L MCV 79.7 L MPV Absolute Neuts (auto) Neutrophils % 94.4 H D Lymphocytes % 2.9 L D Monocytes % 2.6 L D PTT (Actin FS) Lactic Acid 2.4 H* AST ALT Albumin Ur Leukocyte Esterase Active Medications Generic Name Dose Route Start Last Admin Trade Name Freq PRN Reason Stop Dose Admin Acetaminophen 1,000 mg 08/17/18 19:00 Ofirmev Injection - IVPB Q6H PRN FEVER Acetaminophen/Butalbital/Caffeine 1 tablet 08/18/18 06:56 Fioricet - PO 08/18/18 06:57 ONCE ONE Chlorhexidine Gluconate 1 applic 08/17/18 22:00 08/17/18 22:10 Hibiclens For Decolonization - TP Not Given HS AG Diphenhydramine HCl 50 mg 08/17/18 19:00 08/18/18 06:07 Benadryl Injection - IVPB Not Given Q6H AG Enoxaparin Sodium 40 mg 08/18/18 10:00 Lovenox - SQ DAILY AG Vancomycin HCl 1,000 mg/ 250 mls @ 166.667 mls/hr 08/18/18 03:00 Dextrose IVPB Q12H AG Protocol Doxycycline Hyclate 100 mg/ 100 mls @ 100 mls/hr 08/17/18 20:00 08/17/18 20: 17 Dextrose IVPB 100 mls/hr BID AG Administration Sodium Chloride 1,000 mls @ 150 mls/hr 08/17/18 21:30 08/17/18 22:44 Normal Saline - IV 150 mls/hr ASDIR AG Administration Methylprednisolone Sodium Succinate 60 mg 08/17/18 21:00 08/18/18 02:25 Solu-Medrol - IVPUSH 60 mg Q6H-IV AG Administration Metoclopramide HCl 10 mg 08/17/18 17:29 Reglan Injection - IVPUSH Q8H PRN NAUSEA AND/OR VOMITING Mupirocin 1 applic 08/17/18 22:00 08/17/18 22:10 Bactroban Ointment (For Decolonization) - NS 08/22/18 21:59 Not Given BID AG Oseltamivir Phosphate 75 mg 08/17/18 22:00 08/17/18 22:44 Tamiflu - PO 08/22/18 21:59 75 mg BID AG Administration Tramadol HCl 50 mg 08/18/18 02:42 08/18/18 03:15 Ultram - PO 50 mg Q4H PRN Administration PAIN LEVEL 6-10 A/P 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 The patient states this morning she took her Amoxicillin together with her Cephalexin around 9 am and began experiencing the allergic reaction-like symptoms after. The patient states she was started on Amoxicillin 4 days ago for a throat infection/body aches/fever which she had since 08/12, along with Tamiflu. HAd been on keflex for 3 weeks for acne and augmentin for 4 days. Has been feeling unwell since 08/12/18 with generalized bodyaches and fevers. Was well prior to that On augmentin since 07/30/24 RAsh, itching, swollen lips since 08/17 5pm Allergic reaction to augmentin/cephalexin/ viral illness/? autoimmune component Severe leukopenia--? viral illness + ? drug induced neutropenia + ?? auto immune component ? allergic reaction to penicillin/cephalexin ? drug induced neutropenia related to that On steroids for allergic reaction will check B12/ folate/TSH/fT4/flowcytometry/SEAN/ESR/CRP/complements Will consult rheumatology/dermatology Further w/u and neupogen based on clinical course will follow
[2018-08-17] MEDS: OSELTAMIVIR PHOSPHATE 75 MG CAPSULE PO SCH (22:44)
[2018-08-18] MEDS: methylPREDNISolone NA SUCC 125 MG/2 ML VIAL IVPUSH SCH ×2 (02:25→10:21)
[2018-08-18] MEDS ORDERED: traMADol HCL 50 MG TABLET PO PRN ×2 (02:42→13:39)
[2018-08-18] MEDS ORDERED: VANCOMYCIN 1,000 MG in DEXTROSE 5%-WATER - 250 ML IVPB SCH ×2 (03:00→15:00)
[2018-08-18] MEDS ORDERED: VANCOMYCIN 1,000 MG in DEXTROSE 5%-WATER - 250 ML IVPB ONE (03:00)
[2018-08-18 06:42] LABS: BASO % 0.1 % (0-2.0); HEMATOCRIT 34.7 % (32.4-45.2); HEMOGLOBIN 11.3 GM/dL (10.7-15.3); LYMPH % 2.9 % (8-40); MCH 25.9 pg (25.7-33.7); MCHC 32.5 g/dl (32.0-36.0); MEAN CELL VOLUME 79.7 fl (80-96); MEAN PLT VOLUME 7.8 fl (7.5-11.1); MONO % 2.6 % (3.8-10.2); NEUT % 94.4 % (42.8-82.8); PLATELET COUNT 213 K/MM3 (134-434); RBC 4.35 M/mm3 (3.60-5.2); RDW 12.5 % (11.6-15.6); WHITE BLOOD COUNT 2.6 K/mm3 (4.0-10.0)
[2018-08-18] MEDS ORDERED: ACETAMINOPHEN/CAFFEINE/BUTALBITAL 1 TAB PO ONE (06:56)
[2018-08-18 07:35] LABS: ALBUMIN 2.5 g/dl (3.4-5.0); ALK PHOS 102 U/L (45-117); ANION GAP 6 MMOL/L (8-16); BILIRUBIN,TOTAL 0.3 mg/dL (0.2-1); BLOOD UREA NITROGEN 9 mg/dL (7-18); CALCIUM 7.5 mg/dL (8.5-10.1); CHLORIDE 111 mmol/L (98-107); CO2 23 mmol/L (21-32); CREATININE 0.7 mg/dL (0.55-1.3); GLUCOSE,RANDOM 101 mg/dL (74-106); MAGNESIUM 1.6 mg/dL (1.8-2.4); PHOSPHOROUS 3.2 mg/dL (2.5-4.9); POTASSIUM 4.3 mmol/L (3.5-5.1); SGOT/AST 147 U/L (15-37); SGPT/ALT 166 U/L (13-61); SODIUM 140 mmol/L (136-145); TOT PROT 6.5 g/dl (6.4-8.2)
[2018-08-18] MEDS ORDERED: MAGNESIUM SULF 50% (8.12 MEQ/2 ML-1 GM VIAL) IVPB ONE (09:01)
[2018-08-18 09:42] LABS: ERYTHROCYTE SEDIMENTATION RATE 53 mm/hr (0-20)
[2018-08-18 09:49] LABS: COCAINE, UR NEGATIVE ng/ml (CUTOFF=300); METHADONE, UR NEGATIVE ng/ml (CUTOFF=300); OPIATES, URI NEGATIVE ng/ml (CUTOFF=300); PHENCYCLIDINE,URINE NEGATIVE ng/ml (CUTOFF=25); URINE AMPHETAMINES NEGATIVE ng/ml (CUTOFF=500); URINE BARBITURATES NEGATIVE ng/ml (CUTOFF=200); URINE BENZODIAZEPINES NEGATIVE ng/ml (CUTOFF=200)
[2018-08-18] MEDS ORDERED: DOXYCYCLINE HYCLATE 100 MG CAPSULE PO SCH (10:00)
[2018-08-18] MEDS ORDERED: PT OWN MED DRAWER 7, Y5N ONE ×2 (10:11→18:27)
[2018-08-18] MEDS: DOXYCYCLINE INJECTION 100 MG in DEXTROSE 5%-WATER - 100 ML IVPB SCH (10:18)
[2018-08-18] MEDS: ENOXAPARIN NA (PORCINE) 40 MG/0.4 ML DISP.SYRIN SQ SCH ×2 (10:26→10:36)
[2018-08-18] MEDS: OSELTAMIVIR PHOSPHATE 75 MG CAPSULE PO SCH ×2 (10:26→21:20)
[2018-08-18] MEDS: MUPIROCIN 2% TOPICAL OINTMENT FOR DECOLONIZATION NS SCH (10:27)
--- NOTE | 2018-08-18 11:31 | PN ---
Progress Note (short form) - Note Progress Note: Patient seen and examined C/o pain in muscles, but no joint symptoms. Had fevers, sore throat, and developed pruritus with amoxicillin Developed swelling, difficulty with swallowing , rash, after zosyn administered ( now discontinued) Initial WBC count 800 with improvement after steroid therapy to s600 with ANC now 2300 (initial ANC -500) Last Vital Signs Temp Pulse Resp BP Pulse Ox 100.3 F H 96 H 24 H 131/66 96 08/18/18 10:00 08/18/18 10:00 08/18/18 10:00 08/18/18 10:00 08/18/18 08:00 HEENT: APARNA, EOM Intact Oropharynx: No thrush, No mucositis Neck: Supple Nodes: Bilateral axillary adenopathy R> L Breasts: Without masses- s-p surgery with augmentation and reduction Cor: RSR, No murmurs, No gallops Lungs: Clear to P&A Abd: Soft, Normal bowel sounds, No organomegaly Ext:No significant edema Skin: No rashes, Integument intact CBC, BMP 08/18/18 05:30 Laboratory Last Values WBC 2.6 K/mm3 (4.0-10.0) L 08/18/18 05:30 RBC 4.35 M/mm3 (3.60-5.2) 08/18/18 05:30 Hgb 11.3 GM/dL (10.7-15.3) 08/18/18 05:30 Hct 34.7 % (32.4-45.2) 08/18/18 05:30 MCV 79.7 fl (80-96) L 08/18/18 05:30 MCH 25.9 pg (25.7-33.7) 08/18/18 05:30 MCHC 32.5 g/dl (32.0-36.0) 08/18/18 05:30 RDW 12.5 % (11.6-15.6) 08/18/18 05:30 Plt Count 213 K/MM3 (134-434) 08/18/18 05:30 MPV 7.8 fl (7.5-11.1) 08/18/18 05:30 Absolute Neuts (auto) 2.5 K/mm3 (1.5-8.0) 08/18/18 05:30 Neutrophils % 94.4 % (42.8-82.8) H D 08/18/18 05:30 Neutrophils % (Manual) 58.3 % (42.8-82.8) 08/17/18 12:53 Band Neutrophils % 8.3 % 08/17/18 12:53 Lymphocytes % 2.9 % (8-40) L D 08/18/18 05:30 Lymphocytes % (Manual) 25.0 % (8-40) 08/17/18 12:53 Monocytes % 2.6 % (3.8-10.2) L D 08/18/18 05:30 Monocytes % (Manual) 4 % (3.8-10.2) 08/17/18 12:53 Eosinophils % 0.0 % (0-4.5) D 08/18/18 05:30 Eosinophils % (Manual) 0.0 % (0-4.5) 08/17/18 12:53 Basophils % 0.1 % (0-2.0) 08/18/18 05:30 Basophils % (Manual) 0.0 % (0-2.0) 08/17/18 12:53 Myelocytes % (Man) 0 % (0-2) 08/17/18 12:53 Promyelocytes % (Man) 0 % (0-2) 08/17/18 12:53 Blast Cells % (Manual) 0 % (0-0) 08/17/18 12:53 Nucleated RBC % 0 % (0-0) 08/18/18 05:30 Metamyelocytes 0 % (0-2) 08/17/18 12:53 Hypochromia 0 08/17/18 12:53 Toxic Granulation 0 08/17/18 12:53 Dohle Bodies 0 08/17/18 12:53 Platelet Estimate Normal 08/17/18 12:53 Polychromasia 0 08/17/18 12:53 Poikilocytosis 0 08/17/18 12:53 Basophilic Stippling 0 08/17/18 12:53 Anisocytosis 0 08/17/18 12:53 Microcytosis 0 08/17/18 12:53 Macrocytosis 0 08/17/18 12:53 Spherocytes 0 08/17/18 12:53 Sickle Cells 0 08/17/18 12:53 Target Cells 0 08/17/18 12:53 Tear Drop Cells 0 08/17/18 12:53 Ovalocytes 0 08/17/18 12:53 Stomatocytes 0 08/17/18 12:53 Helmet Cells 0 08/17/18 12:53 Huang-[place] Bodies 0 08/17/18 12:53 [place] Rings 0 08/17/18 12:53 [place] Cells 0 08/17/18 12:53 Acanthocytes (Spur) 0 08/17/18 12:53 Rouleaux 0 08/17/18 12:53 Fragmented RBCs 0 08/17/18 12:53 Schistocytes 0 08/17/18 12:53 ESR 53 mm/hr (0-20) H 08/18/18 05:30 Retic Count 0.38 % (0.5-1.5) L 08/18/18 07:25 PT with INR 11.50 SEC (9.7-13.0) 08/17/18 15:45 INR 1.02 (0.83-1.09) 08/17/18 15:45 PTT (Actin FS) 24.0 SECONDS (25.2-36.5) L 08/17/18 15:45 Sodium 140 mmol/L (136-145) 08/18/18 05:30 Potassium 4.3 mmol/L (3.5-5.1) 08/18/18 05:30 Chloride 111 mmol/L (98-107) H 08/18/18 05:30 Carbon Dioxide 23 mmol/L (21-32) 08/18/18 05:30 Anion Gap 6 MMOL/L (8-16) L 08/18/18 05:30 BUN 9 mg/dL (7-18) 08/18/18 05:30 Creatinine 0.7 mg/dL (0.55-1.3) 08/18/18 05:30 Creat Clearance w eGFR > 60 (>60) 08/18/18 05:30 Random Glucose 101 mg/dL (74-106) 08/18/18 05:30 Lactic Acid 1.9 mmol/L (0.4-2.0) 08/18/18 05:30 Calcium 7.5 mg/dL (8.5-10.1) L 08/18/18 05:30 Phosphorus 3.2 mg/dL (2.5-4.9) 08/18/18 05:30 Magnesium 1.6 mg/dL (1.8-2.4) L 08/18/18 05:30 Total Bilirubin 0.3 mg/dL (0.2-1) 08/18/18 05:30 AST 147 U/L (15-37) H 08/18/18 05:30 ALT 166 U/L (13-61) H 08/18/18 05:30 Alkaline Phosphatase 102 U/L (45-117) 08/18/18 05:30 LD Total 336 U/L (84-246) H 08/18/18 07:25 Creatine Kinase 71 IU/L (26-192) 08/17/18 12:53 C-Reactive Protein 10.6 MG/DL (0.00-0.3) H 08/18/18 05:30 Total Protein 6.5 g/dl (6.4-8.2) 08/18/18 05:30 Albumin 2.5 g/dl (3.4-5.0) L 08/18/18 05:30 Vitamin B12 1754 pg/ml (193-986) H 08/18/18 07:25 TSH 0.42 uIU/ml (0.358-3.74) 08/18/18 07:25 Free T4 1.05 ng/dl (0.76-1.46) 08/18/18 07:25 Beta HCG, Quant < 1.0 mIU/ml 08/17/18 14:31 Urine Color Ltyellow 08/17/18 14:31 Urine Appearance Slcloudy 08/17/18 14:31 Urine pH 5.0 (5.0-8.0) 08/17/18 14:31 Ur Specific [place] 1.015 (1.001-1.035) 08/17/18 14:31 Urine Protein Negative (NEGATIVE) 08/17/18 14:31 Urine Glucose (UA) Negative (NEGATIVE) 08/17/18 14:31 Urine Ketones Negative (NEGATIVE) 08/17/18 14:31 Urine Blood Negative (NEGATIVE) 08/17/18 14:31 Urine Nitrite Negative (NEGATIVE) 08/17/18 14:31 Urine Bilirubin Negative (<2.0 mg/dL) 08/17/18 14:31 Urine Urobilinogen Negative mg/dL (0.2-1.0) 08/17/18 14:31 Ur Leukocyte Esterase 2+ (NEGATIVE) H 08/17/18 14:31 Urine WBC (Auto) 12 /hpf (3-5) 08/17/18 14:31 Urine RBC (Auto) 1 /hpf (0-3) 08/17/18 14:31 Ur Epithelial Cells Few /HPF (FEW) 08/17/18 14:31 Hyaline Casts 1 /lpf 08/17/18 14:31 Urine HCG, Qual Negative 08/17/18 14:31 Random Vancomycin 18.3 ug/ml (18-26) 08/18/18 05:30 Opiates Screen Negative ng/ml (GYUVNX=503) 08/18/18 09:00 Methadone Screen Negative ng/ml (WBQODW=614) 08/18/18 09:00 Barbiturate Screen Negative ng/ml (EBDPAB=882) 08/18/18 09:00 Phencyclidine Screen Negative ng/ml (CUTOFF=25) 08/18/18 09:00 Ur Amphetamines Screen Negative ng/ml (VMNOQZ=705) 08/18/18 09:00 MDMA (Ecstasy) Screen Negative ng/ml (LIFCWM=206) 08/18/18 09:00 Benzodiazepines Screen Negative ng/ml (HUCEBF=739) 08/18/18 09:00 Cocaine Screen Negative ng/ml (TKSJRT=157) 08/18/18 09:00 U Marijuana (THC) Screen Negative ng/ml (CUTOFF=50) 08/18/18 09:00 HIV 1&2 Antibody Screen Negative 08/17/18 14:30 HIV P24 Antigen Negative 08/17/18 14:30 Impression Hx of SLE Febrile illness with myalgias, sore throat Pruritus, rash with amoxicillin and worsening with swelling after zosyn Neutropenia- improved after steroids Abnormal LFT's Axillary adenopathy Microcytosis Reverse A/G ratio Possibility of drug reaction- now antibiotics have been changed ? lupus flare ? infection ? other Work - up for lupus flare with complement total, C3, C4, anti DSDNA CPK, aldolase,TSH R/O hepatitis, tick borne infections, etc. Check immunoglobulins Would monitor CBC.
[2018-08-18] MEDS ORDERED: SODIUM CHLORIDE 1,000 ML IV SCH (12:06)
--- NOTE | 2018-08-18 12:06 | PN ---
Teaching Attending Note Name of Resident: Priscilla Roldan ATTENDING PHYSICIAN STATEMENT I saw and evaluated the patient. I reviewed the resident's note and discussed the case with the resident. I agree with the resident's findings and plan as documented. SUBJECTIVE: Patient seen and examined in the ICU. Awake and alert. Rash from yesterday dramatically improved. No CP or SOB. Reports feeling better except her SCHMITT persists some generalized myalgias. Intake & Output 08/15/18 08/16/18 08/17/18 08/18/18 23:59 23:59 23:59 23:59 Intake Total 3500 1800 Output Total 1100 1600 Balance 2400 200 Weight 145 lb Last Vital Signs Temp Pulse Resp BP Pulse Ox 100.3 F H 96 H 24 H 131/66 96 08/18/18 10:00 08/18/18 10:00 08/18/18 10:00 08/18/18 10:00 08/18/18 08:00 Active Medications Acetaminophen (Ofirmev Injection -) 1,000 mg IVPB Q6H PRN PRN Reason: FEVER Last Admin: 08/18/18 10:14 Dose: 1,000 mg Chlorhexidine Gluconate (Hibiclens For Decolonization -) 1 applic TP HS AG Last Admin: 08/17/18 22:10 Dose: Not Given Diphenhydramine HCl (Benadryl Injection -) 50 mg IVPB Q6H AG Last Admin: 08/18/18 06:07 Dose: Not Given Enoxaparin Sodium (Lovenox -) 40 mg SQ DAILY AG Last Admin: 08/18/18 10:36 Dose: Not Given Vancomycin HCl 1,000 mg/ (Dextrose) 250 mls @ 166.667 mls/hr IVPB Q12H AG; Protocol Doxycycline Hyclate 100 mg/ (Dextrose) 100 mls @ 100 mls/hr IVPB BID AG Last Admin: 08/18/18 10:18 Dose: 100 mls/hr Sodium Chloride (Normal Saline -) 1,000 mls @ 150 mls/hr IV ASDIR AG Last Admin: 08/17/18 22:44 Dose: 150 mls/hr Methylprednisolone Sodium Succinate (Solu-Medrol -) 60 mg IVPUSH Q6H-IV AG Last Admin: 08/18/18 10:21 Dose: 60 mg Metoclopramide HCl (Reglan Injection -) 10 mg IVPUSH Q8H PRN PRN Reason: NAUSEA AND/OR VOMITING Mupirocin (Bactroban Ointment (For Decolonization) -) 1 applic NS BID [facility] Stop: 08/22/18 21:59 Last Admin: 08/18/18 10:27 Dose: 1 applic Oseltamivir Phosphate (Tamiflu -) 75 mg PO BID [facility] Stop: 08/22/18 21:59 Last Admin: 08/18/18 10:26 Dose: 75 mg Tramadol HCl (Ultram -) 50 mg PO Q4H PRN PRN Reason: PAIN LEVEL 6-10 Last Admin: 08/18/18 03:15 Dose: 50 mg General: Awake and alert, NAD HEENT: PERRL, EOMI, MMM Cards: S1S2, regular, no murmur appreciated Pulm: Clear to auscultation bilaterally Abd: Soft, nontender, nondistended, (+) BS : No CVA tenderness Ext: Atraumatic. No LE edema. ROM intact. Strength 5/5 and equal bilaterally Vasc: Extremities WWP. Palpable radial and pedal pulses bilaterally Skin: Normal color, minimal rash on the face Neuro: A&Ox3, CN grossly intact Psych: Mood appropriate Laboratory Results - last 24 hr 08/17/18 08/17/18 08/17/18 12:53 12:53 14:30 WBC 0.8 L* RBC 4.86 Hgb 12.8 Hct 38.8 MCV 79.9 L MCH 26.3 MCHC 32.9 RDW 12.7 Plt Count 253 MPV 7.4 L Absolute Neuts (auto) 0.6 L Neutrophils % 70.7 Neutrophils % (Manual) 58.3 Band Neutrophils % 8.3 Lymphocytes % 28.4 Lymphocytes % (Manual) 25.0 Monocytes % 0.5 L Monocytes % (Manual) 4 Eosinophils % 0.1 Eosinophils % (Manual) 0.0 Basophils % 0.3 Basophils % (Manual) 0.0 Myelocytes % (Man) 0 Promyelocytes % (Man) 0 Blast Cells % (Manual) 0 Nucleated RBC % 0 Metamyelocytes 0 Hypochromia 0 Toxic Granulation 0 Dohle Bodies 0 Platelet Estimate Normal Polychromasia 0 Poikilocytosis 0 Basophilic Stippling 0 Anisocytosis 0 Microcytosis 0 Macrocytosis 0 Spherocytes 0 Sickle Cells 0 Target Cells 0 Tear Drop Cells 0 Ovalocytes 0 Stomatocytes 0 Helmet Cells 0 Huang-Strawberry Bodies 0 Paint [place] Rings 0 Jefferson Cells 0 Acanthocytes (Spur) 0 Rouleaux 0 Fragmented RBCs 0 Schistocytes 0 ESR Retic Count PT with INR INR PTT (Actin FS) Sodium 136 Potassium 3.7 Chloride 101 Carbon Dioxide 24 Anion Gap 10 BUN 18 Creatinine 0.8 Creat Clearance w eGFR > 60 Random Glucose 100 Lactic Acid Calcium 8.5 Phosphorus Magnesium Total Bilirubin 0.3 AST 108 H ALT 100 H Alkaline Phosphatase 96 LD Total Creatine Kinase 71 C-Reactive Protein Total Protein 7.5 Albumin 3.0 L Vitamin B12 TSH Free T4 Beta HCG, Quant Urine Color Urine Appearance Urine pH Ur Specific [place] Urine Protein Urine Glucose (UA) Urine Ketones Urine Blood Urine Nitrite Urine Bilirubin Urine Urobilinogen Ur Leukocyte Esterase Urine WBC (Auto) Urine RBC (Auto) Ur Epithelial Cells Hyaline Casts Urine HCG, Qual Random Vancomycin Opiates Screen Methadone Screen Barbiturate Screen Phencyclidine Screen Ur Amphetamines Screen MDMA (Ecstasy) Screen Benzodiazepines Screen Cocaine Screen U Marijuana (THC) Screen HIV 1&2 Antibody Screen Negative HIV P24 Antigen Negative 08/17/18 08/17/18 08/17/18 14:31 14:31 15:45 WBC RBC Hgb Hct MCV MCH MCHC RDW Plt Count MPV Absolute Neuts (auto) Neutrophils % Neutrophils % (Manual) Band Neutrophils % Lymphocytes % Lymphocytes % (Manual) Monocytes % Monocytes % (Manual) Eosinophils % Eosinophils % (Manual) Basophils % Basophils % (Manual) Myelocytes % (Man) Promyelocytes % (Man) Blast Cells % (Manual) Nucleated RBC % Metamyelocytes Hypochromia Toxic Granulation Dohle Bodies Platelet Estimate Polychromasia Poikilocytosis Basophilic Stippling Anisocytosis Microcytosis Macrocytosis Spherocytes Sickle Cells Target Cells Tear Drop Cells Ovalocytes Stomatocytes Helmet Cells Huang-Strawberry Bodies Paint Lick Rings Joyce Cells Acanthocytes (Spur) Rouleaux Fragmented RBCs Schistocytes ESR Retic Count PT with INR INR PTT (Actin FS) Sodium Potassium Chloride Carbon Dioxide Anion Gap BUN Creatinine Creat Clearance w eGFR Random Glucose Lactic Acid 2.5 H* Calcium Phosphorus Magnesium Total Bilirubin AST ALT Alkaline Phosphatase LD Total Creatine Kinase C-Reactive Protein Total Protein Albumin Vitamin B12 TSH Free T4 Beta HCG, Quant < 1.0 Urine Color Ltyellow Urine Appearance Slcloudy Urine pH 5.0 Ur Specific [place] 1.015 Urine Protein Negative Urine Glucose (UA) Negative Urine Ketones Negative Urine Blood Negative Urine Nitrite Negative Urine Bilirubin Negative Urine Urobilinogen Negative Ur Leukocyte Esterase 2+ H Urine WBC (Auto) 12 Urine RBC (Auto) 1 Ur Epithelial Cells Few Hyaline Casts 1 Urine HCG, Qual Negative Random Vancomycin Opiates Screen Methadone Screen Barbiturate Screen Phencyclidine Screen Ur Amphetamines Screen MDMA (Ecstasy) Screen Benzodiazepines Screen Cocaine Screen U Marijuana (THC) Screen HIV 1&2 Antibody Screen HIV P24 Antigen 08/17/18 08/17/18 08/17/18 15:45 16:02 19:40 WBC RBC Hgb Hct MCV MCH MCHC RDW Plt Count MPV Absolute Neuts (auto) Neutrophils % Neutrophils % (Manual) Band Neutrophils % Lymphocytes % Lymphocytes % (Manual) Monocytes % Monocytes % (Manual) Eosinophils % Eosinophils % (Manual) Basophils % Basophils % (Manual) Myelocytes % (Man) Promyelocytes % (Man) Blast Cells % (Manual) Nucleated RBC % Metamyelocytes Hypochromia Toxic Granulation Dohle Bodies Platelet Estimate Polychromasia Poikilocytosis Basophilic Stippling Anisocytosis Microcytosis Macrocytosis Spherocytes Sickle Cells Target Cells Tear Drop Cells Ovalocytes Stomatocytes Helmet Cells Huang-Strawberry Bodies Paint Lick Rings Joyce Cells Acanthocytes (Spur) Rouleaux Fragmented RBCs Schistocytes ESR Retic Count PT with INR 11.50 INR 1.02 PTT (Actin FS) 24.0 L Sodium Potassium Chloride Carbon Dioxide Anion Gap BUN Creatinine Creat Clearance w eGFR Random Glucose Lactic Acid 3.1 H* 2.4 H* Calcium Phosphorus Magnesium Total Bilirubin AST ALT Alkaline Phosphatase LD Total Creatine Kinase C-Reactive Protein Total Protein Albumin Vitamin B12 TSH Free T4 Beta HCG, Quant Urine Color Urine Appearance Urine pH Ur Specific [place] Urine Protein Urine Glucose (UA) Urine Ketones Urine Blood Urine Nitrite Urine Bilirubin Urine Urobilinogen Ur Leukocyte Esterase Urine WBC (Auto) Urine RBC (Auto) Ur Epithelial Cells Hyaline Casts Urine HCG, Qual Random Vancomycin Opiates Screen Methadone Screen Barbiturate Screen Phencyclidine Screen Ur Amphetamines Screen MDMA (Ecstasy) Screen Benzodiazepines Screen Cocaine Screen U Marijuana (THC) Screen HIV 1&2 Antibody Screen HIV P24 Antigen 08/18/18 08/18/18 08/18/18 05:30 05:30 05:30 WBC 2.6 L RBC 4.35 Hgb 11.3 Hct 34.7 MCV 79.7 L MCH 25.9 MCHC 32.5 RDW 12.5 Plt Count 213 MPV 7.8 Absolute Neuts (auto) 2.5 Neutrophils % 94.4 H D Neutrophils % (Manual) Band Neutrophils % Lymphocytes % 2.9 L D Lymphocytes % (Manual) Monocytes % 2.6 L D Monocytes % (Manual) Eosinophils % 0.0 D Eosinophils % (Manual) Basophils % 0.1 Basophils % (Manual) Myelocytes % (Man) Promyelocytes % (Man) Blast Cells % (Manual) Nucleated RBC % 0 Metamyelocytes Hypochromia Toxic Granulation Dohle Bodies Platelet Estimate Polychromasia Poikilocytosis Basophilic Stippling Anisocytosis Microcytosis Macrocytosis Spherocytes Sickle Cells Target Cells Tear Drop Cells Ovalocytes Stomatocytes Helmet Cells Huang-Strawberry Bodies Paint Lick Rings Joyce Cells Acanthocytes (Spur) Rouleaux Fragmented RBCs Schistocytes ESR 53 H Retic Count PT with INR INR PTT (Actin FS) Sodium 140 Potassium 4.3 Chloride 111 H Carbon Dioxide 23 Anion Gap 6 L BUN 9 Creatinine 0.7 Creat Clearance w eGFR > 60 Random Glucose 101 Lactic Acid Calcium 7.5 L Phosphorus 3.2 Magnesium 1.6 L Total Bilirubin 0.3 AST 147 H ALT 166 H Alkaline Phosphatase 102 LD Total Creatine Kinase C-Reactive Protein 10.6 H Total Protein 6.5 Albumin 2.5 L Vitamin B12 TSH Free T4 Beta HCG, Quant Urine Color Urine Appearance Urine pH Ur Specific [place] Urine Protein Urine Glucose (UA) Urine Ketones Urine Blood Urine Nitrite Urine Bilirubin Urine Urobilinogen Ur Leukocyte Esterase Urine WBC (Auto) Urine RBC (Auto) Ur Epithelial Cells Hyaline Casts Urine HCG, Qual Random Vancomycin 18.3 Opiates Screen Methadone Screen Barbiturate Screen Phencyclidine Screen Ur Amphetamines Screen MDMA (Ecstasy) Screen Benzodiazepines Screen Cocaine Screen U Marijuana (THC) Screen HIV 1&2 Antibody Screen HIV P24 Antigen 08/18/18 08/18/18 08/18/18 05:30 05:30 07:25 WBC RBC Hgb Hct MCV MCH MCHC RDW Plt Count MPV Absolute Neuts (auto) Neutrophils % Neutrophils % (Manual) Band Neutrophils % Lymphocytes % Lymphocytes % (Manual) Monocytes % Monocytes % (Manual) Eosinophils % Eosinophils % (Manual) Basophils % Basophils % (Manual) Myelocytes % (Man) Promyelocytes % (Man) Blast Cells % (Manual) Nucleated RBC % Metamyelocytes Hypochromia Toxic Granulation Dohle Bodies Platelet Estimate Polychromasia Poikilocytosis Basophilic Stippling Anisocytosis Microcytosis Macrocytosis Spherocytes Sickle Cells Target Cells Tear Drop Cells Ovalocytes Stomatocytes Helmet Cells Huang-Strawberry Bodies Paint Lick Rings [place] Cells Acanthocytes (Spur) Rouleaux Fragmented RBCs Schistocytes ESR Retic Count 0.38 L PT with INR INR PTT (Actin FS) Sodium Potassium Chloride Carbon Dioxide Anion Gap BUN Creatinine Creat Clearance w eGFR Random Glucose Lactic Acid 1.9 Calcium Phosphorus Magnesium Total Bilirubin AST ALT Alkaline Phosphatase LD Total Cancelled Creatine Kinase C-Reactive Protein Total Protein Albumin Vitamin B12 TSH Free T4 Beta HCG, Quant Urine Color Urine Appearance Urine pH Ur Specific [place] Urine Protein Urine Glucose (UA) Urine Ketones Urine Blood Urine Nitrite Urine Bilirubin Urine Urobilinogen Ur Leukocyte Esterase Urine WBC (Auto) Urine RBC (Auto) Ur Epithelial Cells Hyaline Casts Urine HCG, Qual Random Vancomycin Opiates Screen Methadone Screen Barbiturate Screen Phencyclidine Screen Ur Amphetamines Screen MDMA (Ecstasy) Screen Benzodiazepines Screen Cocaine Screen U Marijuana (THC) Screen HIV 1&2 Antibody Screen HIV P24 Antigen 08/18/18 08/18/18 08/18/18 07:25 07:25 09:00 WBC RBC Hgb Hct MCV MCH MCHC RDW Plt Count MPV Absolute Neuts (auto) Neutrophils % Neutrophils % (Manual) Band Neutrophils % Lymphocytes % Lymphocytes % (Manual) Monocytes % Monocytes % (Manual) Eosinophils % Eosinophils % (Manual) Basophils % Basophils % (Manual) Myelocytes % (Man) Promyelocytes % (Man) Blast Cells % (Manual) Nucleated RBC % Metamyelocytes Hypochromia Toxic Granulation Dohle Bodies Platelet Estimate Polychromasia Poikilocytosis Basophilic Stippling Anisocytosis Microcytosis Macrocytosis Spherocytes Sickle Cells Target Cells Tear Drop Cells Ovalocytes Stomatocytes Helmet Cells Huang-Strawberry Bodies Paint Lick Rings Joyce Cells Acanthocytes (Spur) Rouleaux Fragmented RBCs Schistocytes ESR Retic Count PT with INR INR PTT (Actin FS) Sodium Potassium Chloride Carbon Dioxide Anion Gap BUN Creatinine Creat Clearance w eGFR Random Glucose Lactic Acid Calcium Phosphorus Magnesium Total Bilirubin AST ALT Alkaline Phosphatase LD Total 336 H Creatine Kinase C-Reactive Protein Total Protein Albumin Vitamin B12 1754 H Cancelled TSH 0.42 Free T4 1.05 Beta HCG, Quant Urine Color Urine Appearance Urine pH Ur Specific [place] Urine Protein Urine Glucose (UA) Urine Ketones Urine Blood Urine Nitrite Urine Bilirubin Urine Urobilinogen Ur Leukocyte Esterase Urine WBC (Auto) Urine RBC (Auto) Ur Epithelial Cells Hyaline Casts Urine HCG, Qual Random Vancomycin Opiates Screen Negative Methadone Screen Negative Barbiturate Screen Negative Phencyclidine Screen Negative Ur Amphetamines Screen Negative MDMA (Ecstasy) Screen Negative Benzodiazepines Screen Negative Cocaine Screen Negative U Marijuana (THC) Screen Negative HIV 1&2 Antibody Screen HIV P24 Antigen ASSESSMENT/PLAN: Suspected Lupus Flare SLE R/O Sepsis (no clear source other than a suspicion of a viral infection) Suspected PCN Allergy Leukopenia Heme evaluation noted and additional serologies have been sent Rheumatology evaluation has been called Taper Steroids Monitor off Zosyn Would have a low threshold to stop ABX once all cultures are (-) NSAIDS can be used PRN Follow cultures Follow pending serologies I & O VTE prophylaxis Decrease IVF PO as tolerated Dr Golden Critical care time spent in reviewing chart, evaluating patient and formulating plan - 36 minutes.
--- NOTE | 2018-08-18 12:19 | PN ---
Physical Exam: SUBJECTIVE: - Feels much better today overall, but continued muscle aches and headache - Overnight - developed diffuse erythematous rash, hypotensive to low 80's, given 4.7L NS. Given methylprednisolone 125 in evening, 60 Q6hr ordered overnight. Scheduled 50mg IV diphenhydramine overnight with improvement in itching. NPO due to facial swelling. - CT head completed, negative - Fever, rash, itching, swelling, hypotension, tachycardia resolved this morning. OBJECTIVE: Vital Signs Period Temp Pulse Resp BP Sys/Hernandez Pulse Ox Last 24 Hr 98.3 F-100.4 F 77-112 16-24 81-131/46-76 93-98 General: Comfortable, no acute distress, very mildly diaphoretic HEENT: PERRL, EOMI, MMM, voice normal, normal neck ROM Cards: RRR Pulm: Comfortable on room air, clear to auscultation bilaterally Abd: Soft, nontender, nondistended Ext: Atraumatic. No LE edema. ROM intact. Strength 5/5 and equal bilaterally Vasc: Extremities WWP. Palpable radial and pedal pulses bilaterally Heme: No cervical or inguinal LAD. Palpable axillary notes b/l Skin: Normal color, no rashes or lesions Neuro: A&Ox3, CN grossly intact, normal speech, motor/sensory grossly intact and symmetric Psych: Mood appropriate to situation Laboratory Results - last 24 hr 08/17/18 08/17/18 08/17/18 12:53 12:53 14:30 WBC 0.8 L* RBC 4.86 Hgb 12.8 Hct 38.8 MCV 79.9 L MCH 26.3 MCHC 32.9 RDW 12.7 Plt Count 253 MPV 7.4 L Absolute Neuts (auto) 0.6 L Neutrophils % 70.7 Neutrophils % (Manual) 58.3 Band Neutrophils % 8.3 Lymphocytes % 28.4 Lymphocytes % (Manual) 25.0 Monocytes % 0.5 L Monocytes % (Manual) 4 Eosinophils % 0.1 Eosinophils % (Manual) 0.0 Basophils % 0.3 Basophils % (Manual) 0.0 Myelocytes % (Man) 0 Promyelocytes % (Man) 0 Blast Cells % (Manual) 0 Nucleated RBC % 0 Metamyelocytes 0 Hypochromia 0 Toxic Granulation 0 Dohle Bodies 0 Platelet Estimate Normal Polychromasia 0 Poikilocytosis 0 Basophilic Stippling 0 Anisocytosis 0 Microcytosis 0 Macrocytosis 0 Spherocytes 0 Sickle Cells 0 Target Cells 0 Tear Drop Cells 0 Ovalocytes 0 Stomatocytes 0 Helmet Cells 0 [place] Bodies 0 [place] Rings 0 Joyce Cells 0 Acanthocytes (Spur) 0 Rouleaux 0 Fragmented RBCs 0 Schistocytes 0 ESR Retic Count PT with INR INR PTT (Actin FS) Sodium 136 Potassium 3.7 Chloride 101 Carbon Dioxide 24 Anion Gap 10 BUN 18 Creatinine 0.8 Creat Clearance w eGFR > 60 Random Glucose 100 Lactic Acid Calcium 8.5 Phosphorus Magnesium Total Bilirubin 0.3 AST 108 H ALT 100 H Alkaline Phosphatase 96 LD Total Creatine Kinase 71 C-Reactive Protein Total Protein 7.5 Albumin 3.0 L Vitamin B12 TSH Free T4 Beta HCG, Quant Urine Color Urine Appearance Urine pH Ur Specific [place] Urine Protein Urine Glucose (UA) Urine Ketones Urine Blood Urine Nitrite Urine Bilirubin Urine Urobilinogen Ur Leukocyte Esterase Urine WBC (Auto) Urine RBC (Auto) Ur Epithelial Cells Hyaline Casts Urine HCG, Qual Random Vancomycin Opiates Screen Methadone Screen Barbiturate Screen Phencyclidine Screen Ur Amphetamines Screen MDMA (Ecstasy) Screen Benzodiazepines Screen Cocaine Screen U Marijuana (THC) Screen HIV 1&2 Antibody Screen Negative HIV P24 Antigen Negative 08/17/18 08/17/18 08/17/18 14:31 14:31 15:45 WBC RBC Hgb Hct MCV MCH MCHC RDW Plt Count MPV Absolute Neuts (auto) Neutrophils % Neutrophils % (Manual) Band Neutrophils % Lymphocytes % Lymphocytes % (Manual) Monocytes % Monocytes % (Manual) Eosinophils % Eosinophils % (Manual) Basophils % Basophils % (Manual) Myelocytes % (Man) Promyelocytes % (Man) Blast Cells % (Manual) Nucleated RBC % Metamyelocytes Hypochromia Toxic Granulation Dohle Bodies Platelet Estimate Polychromasia Poikilocytosis Basophilic Stippling Anisocytosis Microcytosis Macrocytosis Spherocytes Sickle Cells Target Cells Tear Drop Cells Ovalocytes Stomatocytes Helmet Cells [place] Bodies [place] [address] Cells Acanthocytes (Spur) Rouleaux Fragmented RBCs Schistocytes ESR Retic Count PT with INR INR PTT (Actin FS) Sodium Potassium Chloride Carbon Dioxide Anion Gap BUN Creatinine Creat Clearance w eGFR Random Glucose Lactic Acid 2.5 H* Calcium Phosphorus Magnesium Total Bilirubin AST ALT Alkaline Phosphatase LD Total Creatine Kinase C-Reactive Protein Total Protein Albumin Vitamin B12 TSH Free T4 Beta HCG, Quant < 1.0 Urine Color Ltyellow Urine Appearance Slcloudy Urine pH 5.0 Ur Specific [place] 1.015 Urine Protein Negative Urine Glucose (UA) Negative Urine Ketones Negative Urine Blood Negative Urine Nitrite Negative Urine Bilirubin Negative Urine Urobilinogen Negative Ur Leukocyte Esterase 2+ H Urine WBC (Auto) 12 Urine RBC (Auto) 1 Ur Epithelial Cells Few Hyaline Casts 1 Urine HCG, Qual Negative Random Vancomycin Opiates Screen Methadone Screen Barbiturate Screen Phencyclidine Screen Ur Amphetamines Screen MDMA (Ecstasy) Screen Benzodiazepines Screen Cocaine Screen U Marijuana (THC) Screen HIV 1&2 Antibody Screen HIV P24 Antigen 08/17/18 08/17/18 08/17/18 15:45 16:02 19:40 WBC RBC Hgb Hct MCV MCH MCHC RDW Plt Count MPV Absolute Neuts (auto) Neutrophils % Neutrophils % (Manual) Band Neutrophils % Lymphocytes % Lymphocytes % (Manual) Monocytes % Monocytes % (Manual) Eosinophils % Eosinophils % (Manual) Basophils % Basophils % (Manual) Myelocytes % (Man) Promyelocytes % (Man) Blast Cells % (Manual) Nucleated RBC % Metamyelocytes Hypochromia Toxic Granulation Dohle Bodies Platelet Estimate Polychromasia Poikilocytosis Basophilic Stippling Anisocytosis Microcytosis Macrocytosis Spherocytes Sickle Cells Target Cells Tear Drop Cells Ovalocytes Stomatocytes Helmet Cells [place] Bodies [place] [address] Cells Acanthocytes (Spur) Rouleaux Fragmented RBCs Schistocytes ESR Retic Count PT with INR 11.50 INR 1.02 PTT (Actin FS) 24.0 L Sodium Potassium Chloride Carbon Dioxide Anion Gap BUN Creatinine Creat Clearance w eGFR Random Glucose Lactic Acid 3.1 H* 2.4 H* Calcium Phosphorus Magnesium Total Bilirubin AST ALT Alkaline Phosphatase LD Total Creatine Kinase C-Reactive Protein Total Protein Albumin Vitamin B12 TSH Free T4 Beta HCG, Quant Urine Color Urine Appearance Urine pH Ur Specific [place] Urine Protein Urine Glucose (UA) Urine Ketones Urine Blood Urine Nitrite Urine Bilirubin Urine Urobilinogen Ur Leukocyte Esterase Urine WBC (Auto) Urine RBC (Auto) Ur Epithelial Cells Hyaline Casts Urine HCG, Qual Random Vancomycin Opiates Screen Methadone Screen Barbiturate Screen Phencyclidine Screen Ur Amphetamines Screen MDMA (Ecstasy) Screen Benzodiazepines Screen Cocaine Screen U Marijuana (THC) Screen HIV 1&2 Antibody Screen HIV P24 Antigen 08/18/18 08/18/18 08/18/18 05:30 05:30 05:30 WBC 2.6 L RBC 4.35 Hgb 11.3 Hct 34.7 MCV 79.7 L MCH 25.9 MCHC 32.5 RDW 12.5 Plt Count 213 MPV 7.8 Absolute Neuts (auto) 2.5 Neutrophils % 94.4 H D Neutrophils % (Manual) Band Neutrophils % Lymphocytes % 2.9 L D Lymphocytes % (Manual) Monocytes % 2.6 L D Monocytes % (Manual) Eosinophils % 0.0 D Eosinophils % (Manual) Basophils % 0.1 Basophils % (Manual) Myelocytes % (Man) Promyelocytes % (Man) Blast Cells % (Manual) Nucleated RBC % 0 Metamyelocytes Hypochromia Toxic Granulation Dohle Bodies Platelet Estimate Polychromasia Poikilocytosis Basophilic Stippling Anisocytosis Microcytosis Macrocytosis Spherocytes Sickle Cells Target Cells Tear Drop Cells Ovalocytes Stomatocytes Helmet Cells [place] Bodies [place] Cells Acanthocytes (Spur) Rouleaux Fragmented RBCs Schistocytes ESR 53 H Retic Count PT with INR INR PTT (Actin FS) Sodium 140 Potassium 4.3 Chloride 111 H Carbon Dioxide 23 Anion Gap 6 L BUN 9 Creatinine 0.7 Creat Clearance w eGFR > 60 Random Glucose 101 Lactic Acid Calcium 7.5 L Phosphorus 3.2 Magnesium 1.6 L Total Bilirubin 0.3 AST 147 H ALT 166 H Alkaline Phosphatase 102 LD Total Creatine Kinase C-Reactive Protein 10.6 H Total Protein 6.5 Albumin 2.5 L Vitamin B12 TSH Free T4 Beta HCG, Quant Urine Color Urine Appearance Urine pH Ur Specific [place] Urine Protein Urine Glucose (UA) Urine Ketones Urine Blood Urine Nitrite Urine Bilirubin Urine Urobilinogen Ur Leukocyte Esterase Urine WBC (Auto) Urine RBC (Auto) Ur Epithelial Cells Hyaline Casts Urine HCG, Qual Random Vancomycin 18.3 Opiates Screen Methadone Screen Barbiturate Screen Phencyclidine Screen Ur Amphetamines Screen MDMA (Ecstasy) Screen Benzodiazepines Screen Cocaine Screen U Marijuana (THC) Screen HIV 1&2 Antibody Screen HIV P24 Antigen 08/18/18 08/18/18 08/18/18 05:30 05:30 07:25 WBC RBC Hgb Hct MCV MCH MCHC RDW Plt Count MPV Absolute Neuts (auto) Neutrophils % Neutrophils % (Manual) Band Neutrophils % Lymphocytes % Lymphocytes % (Manual) Monocytes % Monocytes % (Manual) Eosinophils % Eosinophils % (Manual) Basophils % Basophils % (Manual) Myelocytes % (Man) Promyelocytes % (Man) Blast Cells % (Manual) Nucleated RBC % Metamyelocytes Hypochromia Toxic Granulation Dohle Bodies Platelet Estimate Polychromasia Poikilocytosis Basophilic Stippling Anisocytosis Microcytosis Macrocytosis Spherocytes Sickle Cells Target Cells Tear Drop Cells Ovalocytes Stomatocytes Helmet Cells [place] Bodies [place] [address] Cells Acanthocytes (Spur) Rouleaux Fragmented RBCs Schistocytes ESR Retic Count 0.38 L PT with INR INR PTT (Actin FS) Sodium Potassium Chloride Carbon Dioxide Anion Gap BUN Creatinine Creat Clearance w eGFR Random Glucose Lactic Acid 1.9 Calcium Phosphorus Magnesium Total Bilirubin AST ALT Alkaline Phosphatase LD Total Cancelled Creatine Kinase C-Reactive Protein Total Protein Albumin Vitamin B12 TSH Free T4 Beta HCG, Quant Urine Color Urine Appearance Urine pH Ur Specific [place] Urine Protein Urine Glucose (UA) Urine Ketones Urine Blood Urine Nitrite Urine Bilirubin Urine Urobilinogen Ur Leukocyte Esterase Urine WBC (Auto) Urine RBC (Auto) Ur Epithelial Cells Hyaline Casts Urine HCG, Qual Random Vancomycin Opiates Screen Methadone Screen Barbiturate Screen Phencyclidine Screen Ur Amphetamines Screen MDMA (Ecstasy) Screen Benzodiazepines Screen Cocaine Screen U Marijuana (THC) Screen HIV 1&2 Antibody Screen HIV P24 Antigen 08/18/18 08/18/18 08/18/18 07:25 07:25 09:00 WBC RBC Hgb Hct MCV MCH MCHC RDW Plt Count MPV Absolute Neuts (auto) Neutrophils % Neutrophils % (Manual) Band Neutrophils % Lymphocytes % Lymphocytes % (Manual) Monocytes % Monocytes % (Manual) Eosinophils % Eosinophils % (Manual) Basophils % Basophils % (Manual) Myelocytes % (Man) Promyelocytes % (Man) Blast Cells % (Manual) Nucleated RBC % Metamyelocytes Hypochromia Toxic Granulation Dohle Bodies Platelet Estimate Polychromasia Poikilocytosis Basophilic Stippling Anisocytosis Microcytosis Macrocytosis Spherocytes Sickle Cells Target Cells Tear Drop Cells Ovalocytes Stomatocytes Helmet Cells [place] Bodies [place] [address] Cells Acanthocytes (Spur) Rouleaux Fragmented RBCs Schistocytes ESR Retic Count PT with INR INR PTT (Actin FS) Sodium Potassium Chloride Carbon Dioxide Anion Gap BUN Creatinine Creat Clearance w eGFR Random Glucose Lactic Acid Calcium Phosphorus Magnesium Total Bilirubin AST ALT Alkaline Phosphatase LD Total 336 H Creatine Kinase C-Reactive Protein Total Protein Albumin Vitamin B12 1754 H Cancelled TSH 0.42 Free T4 1.05 Beta HCG, Quant Urine Color Urine Appearance Urine pH Ur Specific [place] Urine Protein Urine Glucose (UA) Urine Ketones Urine Blood Urine Nitrite Urine Bilirubin Urine Urobilinogen Ur Leukocyte Esterase Urine WBC (Auto) Urine RBC (Auto) Ur Epithelial Cells Hyaline Casts Urine HCG, Qual Random Vancomycin Opiates Screen Negative Methadone Screen Negative Barbiturate Screen Negative Phencyclidine Screen Negative Ur Amphetamines Screen Negative MDMA (Ecstasy) Screen Negative Benzodiazepines Screen Negative Cocaine Screen Negative U Marijuana (THC) Screen Negative HIV 1&2 Antibody Screen HIV P24 Antigen 08/18/18 11:40 WBC RBC Hgb Hct MCV MCH MCHC RDW Plt Count MPV Absolute Neuts (auto) Neutrophils % Neutrophils % (Manual) Band Neutrophils % Lymphocytes % Lymphocytes % (Manual) Monocytes % Monocytes % (Manual) Eosinophils % Eosinophils % (Manual) Basophils % Basophils % (Manual) Myelocytes % (Man) Promyelocytes % (Man) Blast Cells % (Manual) Nucleated RBC % Metamyelocytes Hypochromia Toxic Granulation Dohle Bodies Platelet Estimate Polychromasia Poikilocytosis Basophilic Stippling Anisocytosis Microcytosis Macrocytosis Spherocytes Sickle Cells Target Cells Tear Drop Cells Ovalocytes Stomatocytes Helmet Cells [place] Bodies [place] [address] Cells Acanthocytes (Spur) Rouleaux Fragmented RBCs Schistocytes ESR Retic Count PT with INR INR PTT (Actin FS) Sodium Potassium Chloride Carbon Dioxide Anion Gap BUN Creatinine Creat Clearance w eGFR Random Glucose Lactic Acid Calcium Phosphorus Magnesium Total Bilirubin AST ALT Alkaline Phosphatase LD Total Creatine Kinase 57 C-Reactive Protein Total Protein Albumin Vitamin B12 TSH Free T4 Beta HCG, Quant Urine Color Urine Appearance Urine pH Ur Specific [place] Urine Protein Urine Glucose (UA) Urine Ketones Urine Blood Urine Nitrite Urine Bilirubin Urine Urobilinogen Ur Leukocyte Esterase Urine WBC (Auto) Urine RBC (Auto) Ur Epithelial Cells Hyaline Casts Urine HCG, Qual Random Vancomycin Opiates Screen Methadone Screen Barbiturate Screen Phencyclidine Screen Ur Amphetamines Screen MDMA (Ecstasy) Screen Benzodiazepines Screen Cocaine Screen U Marijuana (THC) Screen HIV 1&2 Antibody Screen HIV P24 Antigen Active Medications Generic Name Dose Route Start Last Admin Trade Name Freq PRN Reason Stop Dose Admin Acetaminophen 1,000 mg 08/17/18 19:00 08/18/18 10:14 Ofirmev Injection - IVPB 1,000 mg Q6H PRN Administration FEVER Chlorhexidine Gluconate 1 applic 08/17/18 22:00 08/17/18 22:10 Hibiclens For Decolonization - TP Not Given HS AG Diphenhydramine HCl 50 mg 08/17/18 19:00 08/18/18 06:07 Benadryl Injection - IVPB Not Given Q6H AG Enoxaparin Sodium 40 mg 08/18/18 10:00 08/18/18 10:36 Lovenox - SQ Not Given DAILY AG Vancomycin HCl 1,000 mg/ 250 mls @ 166.667 mls/hr 08/18/18 03:00 Dextrose IVPB Q12H AG Protocol Doxycycline Hyclate 100 mg/ 100 mls @ 100 mls/hr 08/17/18 20:00 08/18/18 10: 18 Dextrose IVPB 100 mls/hr BID AG Administration Sodium Chloride 1,000 mls @ 50 mls/hr 08/18/18 12:06 Normal Saline - IV ASDIR AG Methylprednisolone Sodium Succinate 65 mg 08/19/18 10:00 Solu-Medrol - IVPUSH DAILY AG Metoclopramide HCl 10 mg 08/17/18 17:29 Reglan Injection - IVPUSH Q8H PRN NAUSEA AND/OR VOMITING Mupirocin 1 applic 08/17/18 22:00 08/18/18 10:27 Bactroban Ointment (For Decolonization) - NS 08/22/18 21:59 1 applic BID AG Administration Oseltamivir Phosphate 75 mg 08/17/18 22:00 08/18/18 10:26 Tamiflu - PO 08/22/18 21:59 75 mg BID AG Administration Tramadol HCl 50 mg 08/18/18 02:42 08/18/18 03:15 Ultram - PO 50 mg Q4H PRN Administration PAIN LEVEL 6-10 ASSESSMENT/PLAN: Crissy Vanegas is a 28yo woman with a PMH of mild SLE and acne who presents with one week of body aches, headache, sore throat, and fevers that began during a trip to [place]. Today she additionally began to experience itching and rigors after taking cefalexin, amoxicillin and ibuprofen. Her symptoms worsened after receiving zosyn in the ED and included swelling and a full body erythematous rash. She additionally became hypotensive and tachycardic. She was admitted to the ICU due to concern for septic shock but improved significantly overnight. Her overall clinical picture and course are more consistent with a flare of her known SLE, possibly with a component of drug reaction to amoxicillin/zosyn. Neuro: - Acetaminophen PRN for fever or mild pain. Tramadol for severe pain - Continued SCHMITT. CT head negative. Fiorcet given this morning without improvement - Urine tox negative CV: - Tachycardia and hypotension resolved Pulm: - No concerns - Encourage OOB - IS 10x per hour Heme: - Leukopenia to 0.8 with ANC 600 on admission, improved to WBC 2.6 today - Heme/onc following. Ordered anti-ds antibody, total complement, C3, C4 to confirm lupus flare - Daily CBC with diff - Spleen US completed this morning - Pending labs: sickle cell, hgb electrophoresis, iron, TIBC, ferritin, fibrinogen GI: - Regular diet - Reglan PRN for nausea/vomiting - Report of positive hepB earlier this year. Hepatitis panel pending. Liver US completed this morning. Renal: - Voiding appropriately ID: - Neutropenic on admission, improved - Dr Trujillo following - Negative labs: Blood parasite smear, HIV, legionella urine antigen, urine culture, rapid strep, flu. - Pending labs: babesia, lyme, ehrlichia, hepatitis panel, blood cultures - Zosyn d/c'd due to concern for allergy. - Vanc, doxycycline, tamiflu ordered. Will discuss with ID/primary if doxycycline and tamiflu can be discontinued given negative labs. Plan to DC all abx if cultures are negative Rheum: - Rheumatology consulted, recs pending - h/o lupus. No previous similar flare, reports only having joint pain and swelling in the past - Pending labs: SEAN, anti-ds dna ab, histone ab, C3, C4, total complement Endo: - TSH 0.42, T4 1.05 Psych: - No issues Musc: - OOB as tolerated Skin: - Rash that developed yesterday evening now resolved - Dermatology consulted, recs pending PPx: - Low DVT risk, SCD's - No indication for GI ppx FEN: - General diet - NS @50/hr. DC once taking adequate PO - Labs sent for vit D, folate, folate hemolate. B12 level 1754, no concerns. - Replete lytes PRN Dispo: - Stable for transfer to floor. To be discussed with Dr Golden. Priscilla Roldan PGY1 Visit type - Emergency Visit Emergency Visit: No - New Patient This patient is new to me today: No - Critical Care Critical Care patient: Yes Total Critical Care Time (in minutes): 45 Critical Care Statement: The care of this patient involved high complexity decision making to prevent further life threatening deterioration of the patient 's condition and/or to evaluate & treat vital organ system(s) failure or risk of failure.
[2018-08-18 12:34] LABS: ANISOCYTOSIS 1+; MACROCYTOSIS 0; PLATELET ESTIMATE NORMAL
[2018-08-18] MEDS ORDERED: ACETAMINOPHEN 500 MG TABLET (FP) PO PRN (13:39)
[2018-08-18] MEDS ORDERED: METOCLOPRAMIDE HCL INJECTION 10 MG/2 ML VIAL IVPUSH PRN (13:39)
--- NOTE | 2018-08-18 13:50 | PN ---
Physical Exam: SUBJECTIVE: Patient seen and examined oob to chair. Much improved. Rash and full body itching has resolved. OBJECTIVE: Vital Signs Period Temp Pulse Resp BP Sys/Hernandez Pulse Ox Last 24 Hr 98.3 F-100.3 F 77-112 16-24 81-131/46-76 93-98 GENERAL: The patient is awake, alert, and fully oriented, in no acute distress. LUNGS: Breath sounds equal, clear to auscultation bilaterally, no wheezes, no crackles, no accessory muscle use. HEART: Regular rate and rhythm, S1, S2 without murmur, rub or gallop. ABDOMEN: Soft, nontender, nondistended EXTREMITIES: 2+ pulses, warm, well-perfused, no edema. NEUROLOGICAL: Cranial nerves II through XII grossly intact. Normal speech Laboratory Results - last 24 hr 08/17/18 08/17/18 08/17/18 12:53 14:30 14:31 WBC RBC Hgb Hct MCV MCH MCHC RDW Plt Count MPV Absolute Neuts (auto) Neutrophils % Neutrophils % (Manual) 58.3 Band Neutrophils % 8.3 Lymphocytes % Lymphocytes % (Manual) 25.0 Monocytes % Monocytes % (Manual) 4 Eosinophils % Eosinophils % (Manual) 0.0 Basophils % Basophils % (Manual) 0.0 Myelocytes % (Man) 0 Promyelocytes % (Man) 0 Blast Cells % (Manual) 0 Nucleated RBC % Metamyelocytes 0 Hypochromia 0 Toxic Granulation 0 Dohle Bodies 0 Platelet Estimate Normal Polychromasia 0 Poikilocytosis 0 Basophilic Stippling 0 Anisocytosis 0 Microcytosis 0 Macrocytosis 0 Spherocytes 0 Sickle Cells 0 Target Cells 0 Tear Drop Cells 0 Ovalocytes 0 Stomatocytes 0 Helmet Cells 0 [place] Bodies 0 [place] Rings 0 Joyce Cells 0 Acanthocytes (Spur) 0 Rouleaux 0 Fragmented RBCs 0 Schistocytes 0 ESR Retic Count PT with INR INR PTT (Actin FS) Sodium Potassium Chloride Carbon Dioxide Anion Gap BUN Creatinine Creat Clearance w eGFR Random Glucose Lactic Acid Calcium Phosphorus Magnesium Total Bilirubin AST ALT Alkaline Phosphatase LD Total Creatine Kinase C-Reactive Protein Total Protein Albumin Vitamin B12 TSH Free T4 Beta HCG, Quant Urine Color Ltyellow Urine Appearance Slcloudy Urine pH 5.0 Ur Specific [place] 1.015 Urine Protein Negative Urine Glucose (UA) Negative Urine Ketones Negative Urine Blood Negative Urine Nitrite Negative Urine Bilirubin Negative Urine Urobilinogen Negative Ur Leukocyte Esterase 2+ H Urine WBC (Auto) 12 Urine RBC (Auto) 1 Ur Epithelial Cells Few Hyaline Casts 1 Urine HCG, Qual Negative Random Vancomycin Opiates Screen Methadone Screen Barbiturate Screen Phencyclidine Screen Ur Amphetamines Screen MDMA (Ecstasy) Screen Benzodiazepines Screen Cocaine Screen U Marijuana (THC) Screen HIV 1&2 Antibody Screen Negative HIV P24 Antigen Negative 08/17/18 08/17/18 08/17/18 14:31 15:45 15:45 WBC RBC Hgb Hct MCV MCH MCHC RDW Plt Count MPV Absolute Neuts (auto) Neutrophils % Neutrophils % (Manual) Band Neutrophils % Lymphocytes % Lymphocytes % (Manual) Monocytes % Monocytes % (Manual) Eosinophils % Eosinophils % (Manual) Basophils % Basophils % (Manual) Myelocytes % (Man) Promyelocytes % (Man) Blast Cells % (Manual) Nucleated RBC % Metamyelocytes Hypochromia Toxic Granulation Dohle Bodies Platelet Estimate Polychromasia Poikilocytosis Basophilic Stippling Anisocytosis Microcytosis Macrocytosis Spherocytes Sickle Cells Target Cells Tear Drop Cells Ovalocytes Stomatocytes Helmet Cells Huang-[place] Bodies [place] Rings [place] Cells Acanthocytes (Spur) Rouleaux Fragmented RBCs Schistocytes ESR Retic Count PT with INR 11.50 INR 1.02 PTT (Actin FS) 24.0 L Sodium Potassium Chloride Carbon Dioxide Anion Gap BUN Creatinine Creat Clearance w eGFR Random Glucose Lactic Acid 2.5 H* Calcium Phosphorus Magnesium Total Bilirubin AST ALT Alkaline Phosphatase LD Total Creatine Kinase C-Reactive Protein Total Protein Albumin Vitamin B12 TSH Free T4 Beta HCG, Quant < 1.0 Urine Color Urine Appearance Urine pH Ur Specific [place] Urine Protein Urine Glucose (UA) Urine Ketones Urine Blood Urine Nitrite Urine Bilirubin Urine Urobilinogen Ur Leukocyte Esterase Urine WBC (Auto) Urine RBC (Auto) Ur Epithelial Cells Hyaline Casts Urine HCG, Qual Random Vancomycin Opiates Screen Methadone Screen Barbiturate Screen Phencyclidine Screen Ur Amphetamines Screen MDMA (Ecstasy) Screen Benzodiazepines Screen Cocaine Screen U Marijuana (THC) Screen HIV 1&2 Antibody Screen HIV P24 Antigen 08/17/18 08/17/18 08/18/18 16:02 19:40 05:30 WBC RBC Hgb Hct MCV MCH MCHC RDW Plt Count MPV Absolute Neuts (auto) Neutrophils % Neutrophils % (Manual) Band Neutrophils % Lymphocytes % Lymphocytes % (Manual) Monocytes % Monocytes % (Manual) Eosinophils % Eosinophils % (Manual) Basophils % Basophils % (Manual) Myelocytes % (Man) Promyelocytes % (Man) Blast Cells % (Manual) Nucleated RBC % Metamyelocytes Hypochromia Toxic Granulation Dohle Bodies Platelet Estimate Polychromasia Poikilocytosis Basophilic Stippling Anisocytosis Microcytosis Macrocytosis Spherocytes Sickle Cells Target Cells Tear Drop Cells Ovalocytes Stomatocytes Helmet Cells [place] Bodies [place] Rings [place] Cells Acanthocytes (Spur) Rouleaux Fragmented RBCs Schistocytes ESR Retic Count PT with INR INR PTT (Actin FS) Sodium Potassium Chloride Carbon Dioxide Anion Gap BUN Creatinine Creat Clearance w eGFR Random Glucose Lactic Acid 3.1 H* 2.4 H* Calcium Phosphorus Magnesium Total Bilirubin AST ALT Alkaline Phosphatase LD Total Creatine Kinase C-Reactive Protein Total Protein Albumin Vitamin B12 TSH Free T4 Beta HCG, Quant Urine Color Urine Appearance Urine pH Ur Specific [place] Urine Protein Urine Glucose (UA) Urine Ketones Urine Blood Urine Nitrite Urine Bilirubin Urine Urobilinogen Ur Leukocyte Esterase Urine WBC (Auto) Urine RBC (Auto) Ur Epithelial Cells Hyaline Casts Urine HCG, Qual Random Vancomycin 18.3 Opiates Screen Methadone Screen Barbiturate Screen Phencyclidine Screen Ur Amphetamines Screen MDMA (Ecstasy) Screen Benzodiazepines Screen Cocaine Screen U Marijuana (THC) Screen HIV 1&2 Antibody Screen HIV P24 Antigen 08/18/18 08/18/18 08/18/18 05:30 05:30 05:30 WBC 2.6 L RBC 4.35 Hgb 11.3 Hct 34.7 MCV 79.7 L MCH 25.9 MCHC 32.5 RDW 12.5 Plt Count 213 MPV 7.8 Absolute Neuts (auto) 2.5 Neutrophils % 94.4 H D Neutrophils % (Manual) 42.0 L Band Neutrophils % 42.0 Lymphocytes % 2.9 L D Lymphocytes % (Manual) 4.0 L D Monocytes % 2.6 L D Monocytes % (Manual) 3 L Eosinophils % 0.0 D Eosinophils % (Manual) 0.0 Basophils % 0.1 Basophils % (Manual) 0.0 Myelocytes % (Man) 0 Promyelocytes % (Man) 0 Blast Cells % (Manual) 0 Nucleated RBC % 0 Metamyelocytes 9 H D Hypochromia 0 Toxic Granulation Dohle Bodies Platelet Estimate Normal Polychromasia 0 Poikilocytosis 0 Basophilic Stippling Anisocytosis 1+ Microcytosis 1+ Macrocytosis 0 Spherocytes Sickle Cells Target Cells Tear Drop Cells Ovalocytes Stomatocytes Helmet Cells Huang-[place] Bodies [place] Rings [place] Cells Acanthocytes (Spur) Rouleaux Fragmented RBCs Schistocytes ESR 53 H Retic Count PT with INR INR PTT (Actin FS) Sodium 140 Potassium 4.3 Chloride 111 H Carbon Dioxide 23 Anion Gap 6 L BUN 9 Creatinine 0.7 Creat Clearance w eGFR > 60 Random Glucose 101 Lactic Acid 1.9 Calcium 7.5 L Phosphorus 3.2 Magnesium 1.6 L Total Bilirubin 0.3 AST 147 H ALT 166 H Alkaline Phosphatase 102 LD Total Creatine Kinase C-Reactive Protein 10.6 H Total Protein 6.5 Albumin 2.5 L Vitamin B12 TSH Free T4 Beta HCG, Quant Urine Color Urine Appearance Urine pH Ur Specific [place] Urine Protein Urine Glucose (UA) Urine Ketones Urine Blood Urine Nitrite Urine Bilirubin Urine Urobilinogen Ur Leukocyte Esterase Urine WBC (Auto) Urine RBC (Auto) Ur Epithelial Cells Hyaline Casts Urine HCG, Qual Random Vancomycin Opiates Screen Methadone Screen Barbiturate Screen Phencyclidine Screen Ur Amphetamines Screen MDMA (Ecstasy) Screen Benzodiazepines Screen Cocaine Screen U Marijuana (THC) Screen HIV 1&2 Antibody Screen HIV P24 Antigen 08/18/18 08/18/18 08/18/18 05:30 07:25 07:25 WBC RBC Hgb Hct MCV MCH MCHC RDW Plt Count MPV Absolute Neuts (auto) Neutrophils % Neutrophils % (Manual) Band Neutrophils % Lymphocytes % Lymphocytes % (Manual) Monocytes % Monocytes % (Manual) Eosinophils % Eosinophils % (Manual) Basophils % Basophils % (Manual) Myelocytes % (Man) Promyelocytes % (Man) Blast Cells % (Manual) Nucleated RBC % Metamyelocytes Hypochromia Toxic Granulation Dohle Bodies Platelet Estimate Polychromasia Poikilocytosis Basophilic Stippling Anisocytosis Microcytosis Macrocytosis Spherocytes Sickle Cells Target Cells Tear Drop Cells Ovalocytes Stomatocytes Helmet Cells [place] Bodies [place] Rings [place] Cells Acanthocytes (Spur) Rouleaux Fragmented RBCs Schistocytes ESR Retic Count 0.38 L PT with INR INR PTT (Actin FS) Sodium Potassium Chloride Carbon Dioxide Anion Gap BUN Creatinine Creat Clearance w eGFR Random Glucose Lactic Acid Calcium Phosphorus Magnesium Total Bilirubin AST ALT Alkaline Phosphatase LD Total Cancelled 336 H Creatine Kinase C-Reactive Protein Total Protein Albumin Vitamin B12 1754 H TSH 0.42 Free T4 1.05 Beta HCG, Quant Urine Color Urine Appearance Urine pH Ur Specific [place] Urine Protein Urine Glucose (UA) Urine Ketones Urine Blood Urine Nitrite Urine Bilirubin Urine Urobilinogen Ur Leukocyte Esterase Urine WBC (Auto) Urine RBC (Auto) Ur Epithelial Cells Hyaline Casts Urine HCG, Qual Random Vancomycin Opiates Screen Methadone Screen Barbiturate Screen Phencyclidine Screen Ur Amphetamines Screen MDMA (Ecstasy) Screen Benzodiazepines Screen Cocaine Screen U Marijuana (THC) Screen HIV 1&2 Antibody Screen HIV P24 Antigen 08/18/18 08/18/18 08/18/18 07:25 09:00 11:40 WBC RBC Hgb Hct MCV MCH MCHC RDW Plt Count MPV Absolute Neuts (auto) Neutrophils % Neutrophils % (Manual) Band Neutrophils % Lymphocytes % Lymphocytes % (Manual) Monocytes % Monocytes % (Manual) Eosinophils % Eosinophils % (Manual) Basophils % Basophils % (Manual) Myelocytes % (Man) Promyelocytes % (Man) Blast Cells % (Manual) Nucleated RBC % Metamyelocytes Hypochromia Toxic Granulation Dohle Bodies Platelet Estimate Polychromasia Poikilocytosis Basophilic Stippling Anisocytosis Microcytosis Macrocytosis Spherocytes Sickle Cells Target Cells Tear Drop Cells Ovalocytes Stomatocytes Helmet Cells [place] Bodies [place] Rings [place] Cells Acanthocytes (Spur) Rouleaux Fragmented RBCs Schistocytes ESR Retic Count PT with INR INR PTT (Actin FS) Sodium Potassium Chloride Carbon Dioxide Anion Gap BUN Creatinine Creat Clearance w eGFR Random Glucose Lactic Acid Calcium Phosphorus Magnesium Total Bilirubin AST ALT Alkaline Phosphatase LD Total Creatine Kinase 57 C-Reactive Protein Total Protein Albumin Vitamin B12 Cancelled TSH Free T4 Beta HCG, Quant Urine Color Urine Appearance Urine pH Ur Specific [place] Urine Protein Urine Glucose (UA) Urine Ketones Urine Blood Urine Nitrite Urine Bilirubin Urine Urobilinogen Ur Leukocyte Esterase Urine WBC (Auto) Urine RBC (Auto) Ur Epithelial Cells Hyaline Casts Urine HCG, Qual Random Vancomycin Opiates Screen Negative Methadone Screen Negative Barbiturate Screen Negative Phencyclidine Screen Negative Ur Amphetamines Screen Negative MDMA (Ecstasy) Screen Negative Benzodiazepines Screen Negative Cocaine Screen Negative U Marijuana (THC) Screen Negative HIV 1&2 Antibody Screen HIV P24 Antigen Active Medications Generic Name Dose Route Start Last Admin Trade Name Freq PRN Reason Stop Dose Admin Acetaminophen 1,000 mg 08/18/18 13:39 Tylenol - PO Q6H PRN PAIN OR FEVER Diphenhydramine HCl 50 mg 08/18/18 13:07 Benadryl Injection - IVPB Q6H PRN itching Doxycycline Hyclate 100 mg/ 100 mls @ 100 mls/hr 08/18/18 22:00 Dextrose IVPB BID AG Vancomycin HCl 1,000 mg/ 250 mls @ 166.667 mls/hr 08/18/18 15:00 Dextrose IVPB Q12H AG Protocol Metoclopramide HCl 10 mg 08/18/18 13:39 Reglan Injection - IVPUSH Q8H PRN NAUSEA AND/OR VOMITING Oseltamivir Phosphate 75 mg 08/18/18 22:00 Tamiflu - PO 08/22/18 21:59 BID AG Prednisone 60 mg 08/19/18 10:00 Deltasone - PO DAILY AG Tramadol HCl 50 mg 08/18/18 13:39 Ultram - PO Q4H PRN PAIN LEVEL 6-10 ASSESSMENT/PLAN 28 year-old female with a PMH significant for lupus and acne, taking two antibiotics and Tamiflu, presented to the ED with an apparent drug reaction. Found to be neutropenic and febrile. 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 --she presented to ED with what appeared to have been a mild allergic reaction afer taking amoxicillin and cephalexin together; her symptoms improved with benadryl --when patient was found to be neutropenic with a fever, she was given an empiric dose of Zosyn; as the dose was finishing her BP dropped precipitously and she developed total body itching, swelling of lips, and a rash --aggressively fluid resuscitated, total 4L NS with stabilization of BP --continue prednisone --allergies noted in EMR SLE --past flares characterized by joint pain, takes meloxicam PRN --workup for lupus flare with complement total, C3, C4, Anti DSDNA, CPK, aldolase, TSH --rheum consult Hepatomegaly and splenomegaly --seen on US --hepatitis panel pending Neutropenia, resolved Fever Uncertain etiology: viral v. tick-borne v. lupus flare v. other --from 08/12 (in [place]) to 08/15 (back in [place]) had viral symptoms: headache, bodyaches, fever, sweats, chills --today WBC 2.6k (<--0.8k) ANC 2500 (<--600); Tm 100.4 --blood parasite smear negative; urine antigens negative, flu negative, rapid strep negative, urine negative, HIV negative --tick borne illness panel, blood cultures pending --Vanc stopped; continue Tamiflu to complete 10 doses; continue doxy per ID FEN Fluids: PO intake adequate Electrolytes: replete as indicated Nutrition: regular diet DVT prophylaxis: lovenox Dispo: continues to require ICU level care. Full code. Visit type - Emergency Visit Emergency Visit: Yes ED Registration Date: 08/17/18 Care time: The patient presented to the Emergency Department on the above date and was hospitalized for further evaluation of their emergent condition. - New Patient This patient is new to me today: No - Critical Care Critical Care patient: Yes Total Critical Care Time (in minutes): 45 Critical Care Statement: The care of this patient involved high complexity decision making to prevent further life threatening deterioration of the patient 's condition and/or to evaluate & treat vital organ system(s) failure or risk of failure.
--- NOTE | 2018-08-18 13:53 | PN ---
Progress Note, Physician History of Present Illness: patient looking much better events noted patient became hypotensive with rash yesterday night post zosyn was given steroids iv fluids rash has resolved bp stabilized feels much better - Current Medication List Current Medications: Active Medications Acetaminophen (Tylenol -) 1,000 mg PO Q6H PRN PRN Reason: PAIN OR FEVER Diphenhydramine HCl (Benadryl Injection -) 50 mg IVPB Q6H PRN PRN Reason: itching Doxycycline Hyclate 100 mg/ (Dextrose) 100 mls @ 100 mls/hr IVPB BID AG Metoclopramide HCl (Reglan Injection -) 10 mg IVPUSH Q8H PRN PRN Reason: NAUSEA AND/OR VOMITING Oseltamivir Phosphate (Tamiflu -) 75 mg PO BID AG Stop: 08/22/18 21:59 Prednisone (Deltasone -) 60 mg PO DAILY AG Tramadol HCl (Ultram -) 50 mg PO Q4H PRN PRN Reason: PAIN LEVEL 6-10 - Objective Vital Signs: Vital Signs Temperature 98.5 F 08/18/18 13:33 Pulse Rate 84 08/18/18 13:33 Respiratory Rate 22 H 08/18/18 13:33 Blood Pressure 116/74 08/18/18 13:33 O2 Sat by Pulse Oximetry (%) 96 08/18/18 09:00 Constitutional: Yes: No Distress, Calm Neck: Yes: Supple, Trachea Midline Cardiovascular: Yes: Regular Rate and Rhythm Respiratory: Yes: Regular, CTA Bilaterally Gastrointestinal: Yes: Normal Bowel Sounds, Soft Musculoskeletal: Yes: WNL Extremities: Yes: WNL Neurological: Yes: Alert, Oriented Labs: CBC, BMP 08/18/18 05:30 INR, PTT INR 1.02 (0.83-1.09) 08/17/18 15:45 Assessment/Plan r/o viral illness SLE sepsis Suspected PCN Allergy Leukopenia parasitic infection autoimmune phenomenon wbc increasing from neutropenic state plan await for all cx will stop vanco continue doxy for now will switch to oral close watch rest as per the team cc 40 min
--- NOTE | 2018-08-18 17:39 | CONSULT ---
Consult Consult Specialty:: Rheumatology - History of Present Illness History of Present Illness: 28 year old female, with a significant PMH of probable lupus and acne, admitted with shortness of breath, chest tightness and generalized itchiness. HPI. One week ago the patient developed fever up to 101.5 and days later she developed sore throat. She was seen in a [facility], apparently serology for flu and strep were negative. She was started on Tamiflu and Amoxicillin resulting in significqant improvement. Yesterday she restarted Cephalexin (for Acne) and developed diffuse pruritus and SOB. She came to the ER, She was treated with Zosyn and then she developed fever, diffuse pruritus and hives, tachicardia and decreased BP. She was admitted to the ICU. She was started on Benadryl, Solumedrol 125 mg IV pushe then 60 mg/d and today was switched to Prednisone 60 mg/d. The patient improved, T max this morning was 100.3, and presently is normal, pruritus and kin rash resolved, however she still has joint pain. On admission WBC was 0.8 and improved to 2.6. Urinalysis with LE 2 + and no blood or protein. ESR 53. Probable Lupus. In 05/2015 the patient jhad an episode of jopint pain, malaise , fatigue and fever. CRP was elevated. She was seen by a lens gauger who found normal serology. She was treated with Meloxicam and the symptomns resolved after 3 days. She had similar episodes on 01/07, 11/06 and 05/08. New work-up was suggestive of lupus however she was treated only with Meloxicam PRN (she was suggested to take Hydroxychloroquine, which she refused). Apparently there was never other organ involvement. - History Source History Provided By: Patient, Medical Record - Past Medical History ...: No - Alcohol/Substance Use Hx Alcohol Use: No - Smoking History Smoking history: Never smoked Have you smoked in the past 12 months: No Home Medications - Allergies Allergies/Adverse Reactions: Allergies Allergy/AdvReac Type Severity Reaction Status Date / Time amoxicillin Allergy Severe anaphylaxis, Verified 08/17/18 19:50 shock piperacillin [From Zosyn] Allergy Verified 08/17/18 19:51 tazobactam [From Zosyn] Allergy Verified 08/17/18 19:51 Review of Systems - Review of Systems Constitutional: reports: Malaise Eyes: reports: No Symptoms HENT: reports: No Symptoms Neck: reports: No Symptoms Cardiovascular: reports: No Symptoms Respiratory: reports: SOB Gastrointestinal: reports: No Symptoms Genitourinary: reports: No Symptoms Musculoskeletal: reports: Joint Pain Physical Exam Vital Signs: Vital Signs Temperature 98.5 F 08/18/18 13:33 Pulse Rate 84 08/18/18 13:33 Respiratory Rate 22 H 08/18/18 13:33 Blood Pressure 116/74 08/18/18 13:33 O2 Sat by Pulse Oximetry (%) 96 08/18/18 09:00 Constitutional: Yes: No Distress Eyes: Yes: WNL HENT: Yes: WNL Neck: Yes: WNL Cardiovascular: Yes: WNL Respiratory: Yes: WNL Gastrointestinal: Yes: WNL Musculoskeletal: Yes: Other (Mild tenderness in the right shoulder, left elbow and right knee. No synovitis in hands.) Labs: CBC, BMP 08/18/18 05:30 Laboratory Tests 08/17/18 08/17/18 08/18/18 12:53 14:31 05:30 WBC 0.8 L* RBC Hgb Plt Count ESR Retic Count C-Reactive Protein 10.6 H Total Protein 6.5 Albumin 2.5 L Vitamin B12 TSH Urine Color Ltyellow Urine Appearance Slcloudy Urine pH 5.0 Ur Specific [place] 1.015 Urine Protein Negative Urine Glucose (UA) Negative Urine Ketones Negative Urine Blood Negative Urine Nitrite Negative Urine Bilirubin Negative Urine Urobilinogen Negative Ur Leukocyte Esterase 2+ H Urine WBC (Auto) 12 Urine RBC (Auto) 1 08/18/18 08/18/18 08/18/18 05:30 07:25 07:25 WBC 2.6 L RBC 4.35 Hgb 11.3 Plt Count 213 ESR 53 H Retic Count 0.38 L C-Reactive Protein Total Protein Albumin Vitamin B12 1754 H TSH 0.42 Urine Color Urine Appearance Urine pH Ur Specific [place] Urine Protein Urine Glucose (UA) Urine Ketones Urine Blood Urine Nitrite Urine Bilirubin Urine Urobilinogen Ur Leukocyte Esterase Urine WBC (Auto) Urine RBC (Auto) Assessment/Plan 1. Allergic reaction to Zosyn. Main symptoms on admission: pruritic skin rash , fever arthralgias probably were related to allergic reaction to Cephalexin and exacerbated with Zosyn Leukopenia could be related to the same problem, improving with steroids. 2. Rule out lupus. History of episodes of fever and arthritis that resolve spontaneously after few days and abnormal serology. Probably no organ involvement. It is possible that she has lupus , however it is not a typical presentation. Most likely the clinical picture in admission is related to allergic reaction to medications and not santos lupus. Serology and complement was requested. I will obtain previous work-up. Continue with same medications.
[2018-08-18] MEDS ORDERED: DOXYCYCLINE INJECTION 100 MG in DEXTROSE 5%-WATER - 100 ML IVPB SCH (22:00)
[2018-08-19 06:06] LABS: HEP.C VIRUS AB <0.1 s/co ratio (0.0-0.9)
[2018-08-19 08:21] LABS: BASO % 0.4 % (0-2.0); HEMATOCRIT 34.4 % (32.4-45.2); HEMOGLOBIN 11.2 GM/dL (10.7-15.3); LYMPH % 24.9 % (8-40); MCHC 32.7 g/dl (32.0-36.0); MEAN CELL VOLUME 79.6 fl (80-96); MEAN PLT VOLUME 7.8 fl (7.5-11.1); MONO % 6.3 % (3.8-10.2); NEUT % 68.4 % (42.8-82.8); PLATELET COUNT 259 K/MM3 (134-434); RBC 4.32 M/mm3 (3.60-5.2); RDW 12.8 % (11.6-15.6); WHITE BLOOD COUNT 3.3 K/mm3 (4.0-10.0)
[2018-08-19 09:07] LABS: ALBUMIN 2.6 g/dl (3.4-5.0); ALK PHOS 136 U/L (45-117); ANION GAP 8 MMOL/L (8-16); BILIRUBIN,TOTAL 0.2 mg/dL (0.2-1); BLOOD UREA NITROGEN 10 mg/dL (7-18); CALCIUM 8.7 mg/dL (8.5-10.1); CHLORIDE 111 mmol/L (98-107); CO2 22 mmol/L (21-32); CREATININE 0.6 mg/dL (0.55-1.3); GLUCOSE,RANDOM 77 mg/dL (74-106); POTASSIUM 4.7 mmol/L (3.5-5.1); SGOT/AST 190 U/L (15-37); SGPT/ALT 229 U/L (13-61); SODIUM 140 mmol/L (136-145); TOT PROT 6.4 g/dl (6.4-8.2)
[2018-08-19] MEDS ORDERED: methylPREDNISolone NA SUCC 125 MG/2 ML VIAL IVPUSH SCH (10:00)
[2018-08-19] MEDS: predniSONE 20 MG TABLET (UD) PO SCH (10:42)
[2018-08-19] MEDS ORDERED: PT OWN MED DRAWER 7, Y5N ONE (10:42)
[2018-08-19] MEDS: DOXYCYCLINE HYCLATE 100 MG CAPSULE PO SCH ×2 (10:43→17:17)
[2018-08-19] MEDS: OSELTAMIVIR PHOSPHATE 75 MG CAPSULE PO SCH ×2 (10:43→22:37)
[2018-08-19] MEDS ORDERED: MAGNESIUM OXIDE 400 MG TABLET (FP) PO ONE (14:53)
[2018-08-19] MEDS ORDERED: MAGNESIUM SULF 50% (8.12 MEQ/2 ML-1 GM VIAL) IVPB ONE (15:00)
--- NOTE | 2018-08-19 15:08 | PN ---
Progress Note, Physician History of Present Illness: Events noted. Pt is alert, afebrile. States she feels well. Rash/hypotension resolved. - Current Medication List Current Medications: Active Medications Acetaminophen (Tylenol -) 1,000 mg PO Q6H PRN PRN Reason: PAIN OR FEVER Last Admin: 08/18/18 20:19 Dose: 1,000 mg Diphenhydramine HCl (Benadryl Injection -) 50 mg IVPB Q6H PRN PRN Reason: itching Doxycycline Hyclate (Vibramycin -) 100 mg PO BID@1000,1800 [facility] Last Admin: 08/19/18 10:43 Dose: 100 mg Metoclopramide HCl (Reglan Injection -) 10 mg IVPUSH Q8H PRN PRN Reason: NAUSEA AND/OR VOMITING Oseltamivir Phosphate (Tamiflu -) 75 mg PO BID [facility] Stop: 08/22/18 21:59 Last Admin: 08/19/18 10:43 Dose: 75 mg Prednisone (Deltasone -) 60 mg PO DAILY [facility] Last Admin: 08/19/18 10:42 Dose: 60 mg Tramadol HCl (Ultram -) 50 mg PO Q4H PRN PRN Reason: PAIN LEVEL 6-10 - Objective Vital Signs: Vital Signs Temperature 98.0 F 08/19/18 09:00 Pulse Rate 70 08/19/18 09:00 Respiratory Rate 20 08/19/18 09:00 Blood Pressure 117/82 08/19/18 09:00 O2 Sat by Pulse Oximetry (%) 98 08/19/18 09:00 Constitutional: Yes: No Distress, Calm Cardiovascular: Yes: Regular Rate and Rhythm Respiratory: Yes: CTA Bilaterally Gastrointestinal: Yes: Normal Bowel Sounds, Soft Genitourinary: Yes: WNL Musculoskeletal: Yes: WNL Extremities: Yes: WNL Integumentary: Yes: WNL Neurological: Yes: Alert, Oriented Labs: CBC, BMP 08/19/18 06:30 08/19/18 06:30 INR, PTT INR 1.02 (0.83-1.09) 08/17/18 15:45 Assessment/Plan 28 y.o. female with history of possible Lupus presenting with shortness of breath, tingling/itching while on antibiotics for recent sore throat/fever/ generalized body aches , possible influenza and for acne. Noted to have leukopenia, elevated LFTs and mild hypotension and tachycardia. Developed shock post dose of Zosyn -- rash/hypotension resolved -- work up for possible Infectious Mononucleosis given recent symptoms -- f/u pending serology results, available lab results noted -- continue doxycycline for now -- wbc trending up, on steroids -- monitor cbc, cmp -- Rheumatology and Hematology following
--- NOTE | 2018-08-19 19:57 | PN ---
Progress Note (short form) - Note Progress Note: Patient seen and examined Feels much better Last Vital Signs Temp Pulse Resp BP Pulse Ox 98.7 F 72 20 131/80 98 08/19/18 14:35 08/19/18 14:35 08/19/18 14:35 08/19/18 14:35 08/19/18 09:00 Cor: RSR, No murmurs, No gallops Lungs: Clear to P&A Abd: Soft, Normal bowel sounds, No organomegaly Ext:No significant edema Abnormal Lab Results 08/19/18 08/19/18 06:30 06:30 WBC 3.3 L MCV 79.6 L Chloride 111 H AST 190 H ALT 229 H Alkaline Phosphatase 136 H Albumin 2.6 L Active Medications Generic Name Dose Route Start Last Admin Trade Name Freq PRN Reason Stop Dose Admin Acetaminophen 1,000 mg 08/18/18 13:39 08/18/18 20:19 Tylenol - PO 1,000 mg Q6H PRN Administration PAIN OR FEVER Diphenhydramine HCl 50 mg 08/18/18 13:07 Benadryl Injection - IVPB Q6H PRN itching Doxycycline Hyclate 100 mg 08/19/18 10:00 08/19/18 17:17 Vibramycin - PO 100 mg BID@1000,1800 AG Administration Metoclopramide HCl 10 mg 08/18/18 13:39 Reglan Injection - IVPUSH Q8H PRN NAUSEA AND/OR VOMITING Oseltamivir Phosphate 75 mg 08/18/18 22:00 08/19/18 10:43 Tamiflu - PO 08/22/18 21:59 75 mg BID AG Administration Prednisone 60 mg 08/19/18 10:00 08/19/18 10:42 Deltasone - PO 60 mg DAILY AG Administration Tramadol HCl 50 mg 08/18/18 13:39 Ultram - PO Q4H PRN PAIN LEVEL 6-10 A/P 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 The patient states this morning she took her Amoxicillin together with her Cephalexin around 9 am and began experiencing the allergic reaction-like symptoms after. The patient states she was started on Amoxicillin 4 days ago for a throat infection/body aches/fever which she had since 08/12, along with Tamiflu. HAd been on keflex for 3 weeks for acne and augmentin for 4 days. Has been feeling unwell since 08/12/18 with generalized bodyaches and fevers. Was well prior to that On augmentin since 07/30/24 RAsh, itching, swollen lips since 08/17 5pm Allergic reaction to augmentin/cephalexin/ viral illness/? autoimmune component Severe leukopenia--? viral illness + ? drug induced neutropenia + ?? auto immune component ? allergic reaction to penicillin/cephalexin ? drug induced neutropenia related to that On steroids WBC improving
[2018-08-20 08:02] LABS: BASO % 0.7 % (0-2.0); HEMATOCRIT 34.3 % (32.4-45.2); HEMOGLOBIN 11.2 GM/dL (10.7-15.3); LYMPH % 36.1 % (8-40); MCH 25.7 pg (25.7-33.7); MCHC 32.5 g/dl (32.0-36.0); MEAN CELL VOLUME 78.9 fl (80-96); MONO % 7.4 % (3.8-10.2); NEUT % 55.8 % (42.8-82.8); PLATELET COUNT 292 K/MM3 (134-434); RBC 4.35 M/mm3 (3.60-5.2); RDW 12.7 % (11.6-15.6); WHITE BLOOD COUNT 5.3 K/mm3 (4.0-10.0)
[2018-08-20 08:06] LABS: IGA IMMUNOGLOBULIN 226 mg/dL (87-352); IGG IMMUNOGLOBULIN 1503 mg/dL (700-1600); IGM IMMUNOGLOBULIN 88 mg/dL (26-217); SERUM IRON SATURATION 29 % (15-55); TOTAL IRON BINDING CAPACITY 272 ug/dL (250-450); UIBC 193 ug/dL (131-425)
[2018-08-20] MEDS ORDERED: PT OWN MED DRAWER 7, Y5N ONE (09:17)
[2018-08-20] MEDS: predniSONE 20 MG TABLET (UD) PO SCH (09:18)
[2018-08-20] MEDS: OSELTAMIVIR PHOSPHATE 75 MG CAPSULE PO SCH (09:18)
[2018-08-20] MEDS: DOXYCYCLINE HYCLATE 100 MG CAPSULE PO SCH (09:18)
--- NOTE | 2018-08-20 11:36 | DS ---
Physical Exam: SUBJECTIVE: Patient seen and examined. Feels well except for mild bilateral ankle and foot pain. Rash and full body itching resolved. OBJECTIVE: Vital Signs Period Temp Pulse Resp BP Sys/Hernandez Pulse Ox Last 24 Hr 97.9 F-98.7 F 53-85 16-20 120-133/54-81 99 PHYSICAL EXAM GENERAL: The patient is awake, alert, and fully oriented, in no acute distress. LUNGS: Breath sounds equal, clear to auscultation bilaterally, no wheezes, no crackles, no accessory muscle use. HEART: Regular rate and rhythm, S1, S2 without murmur, rub or gallop. ABDOMEN: Soft, nontender, nondistended EXTREMITIES: 2+ pulses, warm, well-perfused, no edema. No joint swelling. NEUROLOGICAL: Cranial nerves II through XII grossly intact. Normal speech SKIN: no rash Laboratory Results - last 24 hr 08/17/18 08/18/18 08/18/18 15:45 05:30 07:25 WBC RBC Hgb Hct 33.4 L MCV MCH MCHC RDW Plt Count MPV Absolute Neuts (auto) Neutrophils % Lymphocytes % Monocytes % Eosinophils % Basophils % Nucleated RBC % Iron TIBC Iron Saturation Folate 1225 Folate Hemolysate 409.1 IgG IgA IgM SEAN Screen Positive H SEAN Homogeneous Pattern TNP SEAN Nucleolar Pattern TNP SEAN Spindle Aron Pattern TNP SEAN Midbody Pattern TNP SEAN Centriole Pattern TNP SEAN Nuclear Dot Pattern TNP SEAN PCNA Pattern TNP SEAN Nuclear Membr Pat TNP SEAN Speckled Pattern 1:640 H SEAN Centromere Pattern TNP Double Strand DNA Ab Lyme Screen IgG & IgM <0.91 Lyme IgM Quantitation <0.80 Monoscreen 08/18/18 08/19/18 08/19/18 11:00 06:30 06:30 WBC RBC Hgb Hct MCV MCH MCHC RDW Plt Count MPV Absolute Neuts (auto) Neutrophils % Lymphocytes % Monocytes % Eosinophils % Basophils % Nucleated RBC % Iron 79 TIBC 272 Iron Saturation 29 Folate Folate Hemolysate IgG 1503 IgA 226 IgM 88 SEAN Screen SEAN Homogeneous Pattern SEAN Nucleolar Pattern SEAN Spindle Aron Pattern SEAN Midbody Pattern SEAN Centriole Pattern SEAN Nuclear Dot Pattern SEAN PCNA Pattern SEAN Nuclear Membr Pat SEAN Speckled Pattern SEAN Centromere Pattern Double Strand DNA Ab 2 Lyme Screen IgG & IgM Lyme IgM Quantitation Monoscreen 08/19/18 08/20/18 15:45 06:25 WBC 5.3 RBC 4.35 Hgb 11.2 Hct 34.3 MCV 78.9 L MCH 25.7 MCHC 32.5 RDW 12.7 Plt Count 292 MPV 8.0 Absolute Neuts (auto) 3.0 Neutrophils % 55.8 Lymphocytes % 36.1 D Monocytes % 7.4 Eosinophils % 0.0 Basophils % 0.7 Nucleated RBC % 0 Iron TIBC Iron Saturation Folate Folate Hemolysate IgG IgA IgM SEAN Screen SEAN Homogeneous Pattern SEAN Nucleolar Pattern SEAN Spindle Aron Pattern SEAN Midbody Pattern SEAN Centriole Pattern SEAN Nuclear Dot Pattern SEAN PCNA Pattern SEAN Nuclear Membr Pat SEAN Speckled Pattern SEAN Centromere Pattern Double Strand DNA Ab Lyme Screen IgG & IgM Lyme IgM Quantitation Monoscreen Negative Microbiology 08/17/18 12:58 Blood - Peripheral Venous Blood Culture - Preliminary NO GROWTH OBTAINED AFTER 72 HOURS, INCUBATION TO CONTINUE FOR 2 DAYS. 08/17/18 12:55 Blood - Peripheral Venous Blood Culture - Preliminary NO GROWTH OBTAINED AFTER 72 HOURS, INCUBATION TO CONTINUE FOR 2 DAYS. 08/18/18 09:00 Urine For Antigen Detection Legionella Antigen - Final - Negative 08/18/18 09:00 Urine For Antigen Detection Streptococcus pneumoniae Antigen (M - Final-Negative 08/17/18 21:30 Blood - Peripheral Venous Blood Parasites Smear - Final - Negative 08/17/18 14:31 Throat Throat Culture - Final NO BETA HEMOLYTIC STREPTOCOCCI ISOLATED 08/17/18 14:31 Throat Group A Strep Rapid Antigen - Final - Negative 08/17/18 14:31 Urine - Urine - Catheterized Urine Culture - Final NO GROWTH OBTAINED 08/17/18 14:20 Nasopharyngeal Swab Influenza Types A,B Antigen - Final - Negative 08/17/18 14:20 Nasopharyngeal Swab - Final HOSPITAL COURSE: Date of Admission:08/17/18 Date of Discharge: 08/20/18 Pre hospital course 28 year-old female with a PMH significant for Hepatitis B, lupus and acne presented to the ED via walk-in with shortness of breath, chest tightness, generalized itchiness, and tingling in fingertips x 2 hours. The patient stated this morning she took prescribed amoxicillin together with prescribed cephalexin and very shortly thereafter began experiencing allergic-like symptoms. Today was the first day she took those two antibiotics on the same day. She took benadryl PO at home with minimal relief so she came to the ED. While in ED patient developed rigors. The patient was prescribed cephalexin about 3 weeks ago for an acne flare. She took the medication without any problem up until 08/19. She resumed the medication this morning. Patient traveled to [place] on 08/06. On 08/12 while still in [place] she developed a sore throat, headache, body aches, subjective fever and chills. On 08/15 (back in [place]) she went to an urgent care and was prescribed amoxicillin and Tamiflu which she started that night and continued every day since. While in [place] she had multiple bug bites which she thinks were mosquito bites. She traveled with her boyfriend who is well other than mild GI upset from milk/cheese intolerance. At the time of this ICU admission patient has developed a full-body erythematous rash, face, arms, legs. She complains of worsening sore throat and she has a mild cough. Emergent benadryl, solumedrol, pepcid, and albuterol being given. Additional peripheral access. Received 2L NS in ED, will bolus another 2L now. 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 --she presented to ED with what appeared to have been a mild allergic reaction afer taking amoxicillin and cephalexin together; her symptoms improved with benadryl --when patient was found to be neutropenic with a fever and rigors in the ED , she was given an empiric dose of Zosyn; as the dose was finishing her BP dropped precipitously and she developed total body itching, swelling of lips, and a full body rash --aggressively fluid resuscitated, total 4L NS with stabilization of BP --allergies noted in EMR SLE --past flares characterized by joint pain, takes meloxicam PRN --workup for lupus flare with complement total, C3, C4, Anti DSDNA, CPK, aldolase, TSH --rheum consult; labs still pending at time of discharge --patient to follow up with her csr retail, Dr. Tyler Jaimes at [facility] , --continue prednisone 60mg daily on discharge with outpatient f/u Hepatomegaly and splenomegaly --seen on US --hepatitis panel negative Neutropenia, resolved Fever Uncertain etiology: viral v. tick-borne v. lupus flare v. other --from 08/12 (in [place]) to 08/15 (back in [place]) had viral symptoms: headache, bodyaches, fever, sweats, chills --Tm 100.4 on 08/17, defervesced, remained afebrile --WBC 5.3k at time of discharge on prednisone --blood parasite smear negative; urine antigens negative, flu negative, rapid strep negative, urine negative, HIV negative, monospot neg --tick borne illness panel, blood cultures pending --Vanc stopped; completed course of Tamiflu; will continue doxy PO on discharge x 2 weeks with outpatient f/u Minutes to complete discharge: 45 Discharge Summary Reason For Visit: FEVER Current Active Problems Fever (Acute) Condition: Improved - Instructions Diet, Activity, Other Instructions: You are severely allergic to penicillin and penicillin derivative drugs, e.g. amoxicillin, augmentin, Zosyn (piperacillin/tazobactam). You should notify all of your health care providers and always mention this as part of your past medical history. Because your reaction is so severe (anaphylaxis) it is recommended you wear a medical alert bracelet. As discussed, it is possible that you have experienced a flare of lupus. We will contact your csr retail at [facility], Dr. Jaimes, and provide him with a copy of your medical records during your hospital stay. Calll Dr. Jaimes tomorrow morning, tell him of your hospital stay, and make an appointment to see him as soon as possible. Two prescriptions have been sent to your pharmacy. One is for doxycycline, the other is for prednisone. Take these medications as prescribed until you speak with Dr. Jaimes who may make changes. Return to the emergency department for any new or worsening symptoms. Disposition: HOME - Home Medications Comprehensive Discharge Medication List: Ambulatory Orders Doxycycline Hyclate [Vibramycin -] 100 mg PO BID@1000,1800 #14 capsule 08/20/18 predniSONE [Deltasone -] 60 mg PO DAILY #14 tablet 08/20/18 This patient is new to me today: No Emergency Visit: Yes ED Registration Date: 08/17/18 Care time: The patient presented to the Emergency Department on the above date and was hospitalized for further evaluation of their emergent condition. Critical Care patient: No - Discharge Referral Referred to [facility] Med P.C.: No
--- NOTE | 2018-08-20 11:47 | PN ---
Progress Note, Physician History of Present Illness: Pt is doing well. She is afebrile, denies any specific complaints. Wishes to go home. - Current Medication List Current Medications: Active Medications Acetaminophen (Tylenol -) 1,000 mg PO Q6H PRN PRN Reason: PAIN OR FEVER Last Admin: 08/18/18 20:19 Dose: 1,000 mg Diphenhydramine HCl (Benadryl Injection -) 50 mg IVPB Q6H PRN PRN Reason: itching Doxycycline Hyclate (Vibramycin -) 100 mg PO BID@1000,1800 [facility] Last Admin: 08/20/18 09:18 Dose: 100 mg Fluconazole (Diflucan -) 150 mg PO ONCE ONE Stop: 08/20/18 12:01 Metoclopramide HCl (Reglan Injection -) 10 mg IVPUSH Q8H PRN PRN Reason: NAUSEA AND/OR VOMITING Oseltamivir Phosphate (Tamiflu -) 75 mg PO BID [facility] Stop: 08/22/18 21:59 Last Admin: 08/20/18 09:18 Dose: Not Given Prednisone (Deltasone -) 60 mg PO DAILY [facility] Last Admin: 08/20/18 09:18 Dose: 60 mg Tramadol HCl (Ultram -) 50 mg PO Q4H PRN PRN Reason: PAIN LEVEL 6-10 - Objective Vital Signs: Vital Signs Temperature 98 F 08/20/18 06:05 Pulse Rate 53 L 08/20/18 06:05 Respiratory Rate 18 08/20/18 06:05 Blood Pressure 133/77 08/20/18 06:05 O2 Sat by Pulse Oximetry (%) 99 08/19/18 21:00 Constitutional: Yes: No Distress, Calm HENT: Yes: Atraumatic Neck: Yes: Supple Cardiovascular: Yes: Regular Rate and Rhythm Respiratory: Yes: CTA Bilaterally Gastrointestinal: Yes: Normal Bowel Sounds, Soft Genitourinary: Yes: WNL Musculoskeletal: Yes: Other (Lt ankle pain, no swelling/erythema/warmth) Extremities: Yes: WNL Edema: No Integumentary: Yes: WNL Neurological: Yes: Alert, Oriented Labs: CBC, BMP 08/20/18 06:25 08/19/18 06:30 INR, PTT INR 1.02 (0.83-1.09) 08/17/18 15:45 Laboratory Tests 08/17/18 08/17/18 08/17/18 07:25 12:53 12:53 WBC 0.8 L* RBC 4.86 Hgb 12.8 Hct 38.8 MCV 79.9 L MCH 26.3 MCHC 32.9 RDW 12.7 Plt Count 253 MPV 7.4 L Absolute Neuts (auto) 0.6 L Neutrophils % 70.7 Neutrophils % (Manual) 58.3 Band Neutrophils % 8.3 Lymphocytes % 28.4 Lymphocytes % (Manual) 25.0 Monocytes % 0.5 L Monocytes % (Manual) 4 Eosinophils % 0.1 Eosinophils % (Manual) 0.0 Basophils % 0.3 Basophils % (Manual) 0.0 Myelocytes % (Man) 0 Promyelocytes % (Man) 0 Blast Cells % (Manual) 0 Nucleated RBC % 0 Metamyelocytes 0 Hypochromia 0 Toxic Granulation 0 Dohle Bodies 0 Platelet Estimate Normal Polychromasia 0 Poikilocytosis 0 Basophilic Stippling 0 Anisocytosis 0 Microcytosis 0 Macrocytosis 0 Spherocytes 0 Sickle Cells 0 Target Cells 0 Tear Drop Cells 0 Ovalocytes 0 Stomatocytes 0 Helmet Cells 0 [place] Bodies 0 [place] Rings 0 [place] Cells 0 Acanthocytes (Spur) 0 Rouleaux 0 Fragmented RBCs 0 Schistocytes 0 ESR Retic Count Sickle Cell Screen PT with INR INR PTT (Actin FS) Sodium 136 Potassium 3.7 Chloride 101 Carbon Dioxide 24 Anion Gap 10 BUN 18 Creatinine 0.8 Creat Clearance w eGFR > 60 Random Glucose 100 Lactic Acid Calcium 8.5 Phosphorus Magnesium Iron TIBC Iron Saturation Ferritin Total Bilirubin 0.3 AST 108 H ALT 100 H Alkaline Phosphatase 96 LD Total Creatine Kinase 71 C-Reactive Protein Total Protein 7.5 Albumin 3.0 L Vitamin B12 Vitamin D 25-Hydroxy Folate Folate Hemolysate TSH Free T4 Beta HCG, Quant Urine Color Urine Appearance Urine pH Ur Specific [place] Urine Protein Urine Glucose (UA) Urine Ketones Urine Blood Urine Nitrite Urine Bilirubin Urine Urobilinogen Ur Leukocyte Esterase Urine WBC (Auto) Urine RBC (Auto) Ur Epithelial Cells Hyaline Casts Urine HCG, Qual Random Vancomycin Opiates Screen Methadone Screen Barbiturate Screen Phencyclidine Screen Ur Amphetamines Screen MDMA (Ecstasy) Screen Benzodiazepines Screen Cocaine Screen U Marijuana (THC) Screen IgG IgA IgM SEAN Screen SEAN Homogeneous Pattern SEAN Nucleolar Pattern SEAN Spindle Aron Pattern SEAN Midbody Pattern SEAN Centriole Pattern SEAN Nuclear Dot Pattern SEAN PCNA Pattern SEAN Nuclear Membr Pat SEAN Speckled Pattern SEAN Centromere Pattern Double Strand DNA Ab Lyme Screen IgG & IgM Lyme IgM Quantitation Hepatitis A IgM Ab Negative Hep Bs Antigen Negative Hep B Core IgM Ab Negative Hepatitis C Antibody <0.1 Monoscreen HIV 1&2 Antibody Screen HIV P24 Antigen 08/17/18 08/17/18 08/17/18 14:30 14:31 14:31 WBC RBC Hgb Hct MCV MCH MCHC RDW Plt Count MPV Absolute Neuts (auto) Neutrophils % Neutrophils % (Manual) Band Neutrophils % Lymphocytes % Lymphocytes % (Manual) Monocytes % Monocytes % (Manual) Eosinophils % Eosinophils % (Manual) Basophils % Basophils % (Manual) Myelocytes % (Man) Promyelocytes % (Man) Blast Cells % (Manual) Nucleated RBC % Metamyelocytes Hypochromia Toxic Granulation Dohle Bodies Platelet Estimate Polychromasia Poikilocytosis Basophilic Stippling Anisocytosis Microcytosis Macrocytosis Spherocytes Sickle Cells Target Cells Tear Drop Cells Ovalocytes Stomatocytes Helmet Cells [place] Bodies [place] Rings [place] Cells Acanthocytes (Spur) Rouleaux Fragmented RBCs Schistocytes ESR Retic Count Sickle Cell Screen PT with INR INR PTT (Actin FS) Sodium Potassium Chloride Carbon Dioxide Anion Gap BUN Creatinine Creat Clearance w eGFR Random Glucose Lactic Acid Calcium Phosphorus Magnesium Iron TIBC Iron Saturation Ferritin Total Bilirubin AST ALT Alkaline Phosphatase LD Total Creatine Kinase C-Reactive Protein Total Protein Albumin Vitamin B12 Vitamin D 25-Hydroxy Folate Folate Hemolysate TSH Free T4 Beta HCG, Quant < 1.0 Urine Color Ltyellow Urine Appearance Slcloudy Urine pH 5.0 Ur Specific [place] 1.015 Urine Protein Negative Urine Glucose (UA) Negative Urine Ketones Negative Urine Blood Negative Urine Nitrite Negative Urine Bilirubin Negative Urine Urobilinogen Negative Ur Leukocyte Esterase 2+ H Urine WBC (Auto) 12 Urine RBC (Auto) 1 Ur Epithelial Cells Few Hyaline Casts 1 Urine HCG, Qual Negative Random Vancomycin Opiates Screen Methadone Screen Barbiturate Screen Phencyclidine Screen Ur Amphetamines Screen MDMA (Ecstasy) Screen Benzodiazepines Screen Cocaine Screen U Marijuana (THC) Screen IgG IgA IgM SEAN Screen SEAN Homogeneous Pattern SEAN Nucleolar Pattern SEAN Spindle Aron Pattern SEAN Midbody Pattern SEAN Centriole Pattern SEAN Nuclear Dot Pattern SEAN PCNA Pattern SEAN Nuclear Membr Pat SEAN Speckled Pattern SEAN Centromere Pattern Double Strand DNA Ab Lyme Screen IgG & IgM Lyme IgM Quantitation Hepatitis A IgM Ab Hep Bs Antigen Hep B Core IgM Ab Hepatitis C Antibody Monoscreen HIV 1&2 Antibody Screen Negative HIV P24 Antigen Negative 08/17/18 08/17/18 08/17/18 15:45 15:45 15:45 WBC RBC Hgb Hct MCV MCH MCHC RDW Plt Count MPV Absolute Neuts (auto) Neutrophils % Neutrophils % (Manual) Band Neutrophils % Lymphocytes % Lymphocytes % (Manual) Monocytes % Monocytes % (Manual) Eosinophils % Eosinophils % (Manual) Basophils % Basophils % (Manual) Myelocytes % (Man) Promyelocytes % (Man) Blast Cells % (Manual) Nucleated RBC % Metamyelocytes Hypochromia Toxic Granulation Dohle Bodies Platelet Estimate Polychromasia Poikilocytosis Basophilic Stippling Anisocytosis Microcytosis Macrocytosis Spherocytes Sickle Cells Target Cells Tear Drop Cells Ovalocytes Stomatocytes Helmet Cells [place] Bodies [place] Rings [place] Cells Acanthocytes (Spur) Rouleaux Fragmented RBCs Schistocytes ESR Retic Count Sickle Cell Screen PT with INR 11.50 INR 1.02 PTT (Actin FS) 24.0 L Sodium Potassium Chloride Carbon Dioxide Anion Gap BUN Creatinine Creat Clearance w eGFR Random Glucose Lactic Acid 2.5 H* Calcium Phosphorus Magnesium Iron TIBC Iron Saturation Ferritin Total Bilirubin AST ALT Alkaline Phosphatase LD Total Creatine Kinase C-Reactive Protein Total Protein Albumin Vitamin B12 Vitamin D 25-Hydroxy Folate Folate Hemolysate TSH Free T4 Beta HCG, Quant Urine Color Urine Appearance Urine pH Ur Specific [place] Urine Protein Urine Glucose (UA) Urine Ketones Urine Blood Urine Nitrite Urine Bilirubin Urine Urobilinogen Ur Leukocyte Esterase Urine WBC (Auto) Urine RBC (Auto) Ur Epithelial Cells Hyaline Casts Urine HCG, Qual Random Vancomycin Opiates Screen Methadone Screen Barbiturate Screen Phencyclidine Screen Ur Amphetamines Screen MDMA (Ecstasy) Screen Benzodiazepines Screen Cocaine Screen U Marijuana (THC) Screen IgG IgA IgM SEAN Screen SEAN Homogeneous Pattern SEAN Nucleolar Pattern SEAN Spindle Aron Pattern SEAN Midbody Pattern SEAN Centriole Pattern SEAN Nuclear Dot Pattern SEAN PCNA Pattern SEAN Nuclear Membr Pat SEAN Speckled Pattern SEAN Centromere Pattern Double Strand DNA Ab Lyme Screen IgG & IgM <0.91 Lyme IgM Quantitation <0.80 Hepatitis A IgM Ab Hep Bs Antigen Hep B Core IgM Ab Hepatitis C Antibody Monoscreen HIV 1&2 Antibody Screen HIV P24 Antigen 08/17/18 08/17/18 08/18/18 16:02 19:40 05:30 WBC RBC Hgb Hct MCV MCH MCHC RDW Plt Count MPV Absolute Neuts (auto) Neutrophils % Neutrophils % (Manual) Band Neutrophils % Lymphocytes % Lymphocytes % (Manual) Monocytes % Monocytes % (Manual) Eosinophils % Eosinophils % (Manual) Basophils % Basophils % (Manual) Myelocytes % (Man) Promyelocytes % (Man) Blast Cells % (Manual) Nucleated RBC % Metamyelocytes Hypochromia Toxic Granulation Dohle Bodies Platelet Estimate Polychromasia Poikilocytosis Basophilic Stippling Anisocytosis Microcytosis Macrocytosis Spherocytes Sickle Cells Target Cells Tear Drop Cells Ovalocytes Stomatocytes Helmet Cells Huang-[place] Bodies [place] Rings [place] Cells Acanthocytes (Spur) Rouleaux Fragmented RBCs Schistocytes ESR Retic Count Sickle Cell Screen PT with INR INR PTT (Actin FS) Sodium Potassium Chloride Carbon Dioxide Anion Gap BUN Creatinine Creat Clearance w eGFR Random Glucose Lactic Acid 3.1 H* 2.4 H* Calcium Phosphorus Magnesium Iron TIBC Iron Saturation Ferritin Total Bilirubin AST ALT Alkaline Phosphatase LD Total Creatine Kinase C-Reactive Protein Total Protein Albumin Vitamin B12 Vitamin D 25-Hydroxy Folate Folate Hemolysate TSH Free T4 Beta HCG, Quant Urine Color Urine Appearance Urine pH Ur Specific [place] Urine Protein Urine Glucose (UA) Urine Ketones Urine Blood Urine Nitrite Urine Bilirubin Urine Urobilinogen Ur Leukocyte Esterase Urine WBC (Auto) Urine RBC (Auto) Ur Epithelial Cells Hyaline Casts Urine HCG, Qual Random Vancomycin 18.3 Opiates Screen Methadone Screen Barbiturate Screen Phencyclidine Screen Ur Amphetamines Screen MDMA (Ecstasy) Screen Benzodiazepines Screen Cocaine Screen U Marijuana (THC) Screen IgG IgA IgM SEAN Screen SEAN Homogeneous Pattern SEAN Nucleolar Pattern SEAN Spindle Aron Pattern SEAN Midbody Pattern SEAN Centriole Pattern SEAN Nuclear Dot Pattern SEAN PCNA Pattern SEAN Nuclear Membr Pat SEAN Speckled Pattern SEAN Centromere Pattern Double Strand DNA Ab Lyme Screen IgG & IgM Lyme IgM Quantitation Hepatitis A IgM Ab Hep Bs Antigen Hep B Core IgM Ab Hepatitis C Antibody Monoscreen HIV 1&2 Antibody Screen HIV P24 Antigen 08/18/18 08/18/18 08/18/18 05:30 05:30 05:30 WBC 2.6 L RBC 4.35 Hgb 11.3 Hct 34.7 MCV 79.7 L MCH 25.9 MCHC 32.5 RDW 12.5 Plt Count 213 MPV 7.8 Absolute Neuts (auto) 2.5 Neutrophils % 94.4 H D Neutrophils % (Manual) 42.0 L Band Neutrophils % 42.0 Lymphocytes % 2.9 L D Lymphocytes % (Manual) 4.0 L D Monocytes % 2.6 L D Monocytes % (Manual) 3 L Eosinophils % 0.0 D Eosinophils % (Manual) 0.0 Basophils % 0.1 Basophils % (Manual) 0.0 Myelocytes % (Man) 0 Promyelocytes % (Man) 0 Blast Cells % (Manual) 0 Nucleated RBC % 0 Metamyelocytes 9 H D Hypochromia 0 Toxic Granulation Dohle Bodies Platelet Estimate Normal Polychromasia 0 Poikilocytosis 0 Basophilic Stippling Anisocytosis 1+ Microcytosis 1+ Macrocytosis 0 Spherocytes Sickle Cells Target Cells Tear Drop Cells Ovalocytes Stomatocytes Helmet Cells Huang-[place] Bodies [place] Rings [place] Cells Acanthocytes (Spur) Rouleaux Fragmented RBCs Schistocytes ESR 53 H Retic Count Sickle Cell Screen PT with INR INR PTT (Actin FS) Sodium 140 Potassium 4.3 Chloride 111 H Carbon Dioxide 23 Anion Gap 6 L BUN 9 Creatinine 0.7 Creat Clearance w eGFR > 60 Random Glucose 101 Lactic Acid Calcium 7.5 L Phosphorus 3.2 Magnesium 1.6 L Iron TIBC Iron Saturation Ferritin Total Bilirubin 0.3 AST 147 H ALT 166 H Alkaline Phosphatase 102 LD Total Creatine Kinase C-Reactive Protein 10.6 H Total Protein 6.5 Albumin 2.5 L Vitamin B12 Vitamin D 25-Hydroxy Folate Folate Hemolysate TSH Free T4 Beta HCG, Quant Urine Color Urine Appearance Urine pH Ur Specific [place] Urine Protein Urine Glucose (UA) Urine Ketones Urine Blood Urine Nitrite Urine Bilirubin Urine Urobilinogen Ur Leukocyte Esterase Urine WBC (Auto) Urine RBC (Auto) Ur Epithelial Cells Hyaline Casts Urine HCG, Qual Random Vancomycin Opiates Screen Methadone Screen Barbiturate Screen Phencyclidine Screen Ur Amphetamines Screen MDMA (Ecstasy) Screen Benzodiazepines Screen Cocaine Screen U Marijuana (THC) Screen IgG IgA IgM SEAN Screen Positive H SEAN Homogeneous Pattern TNP SEAN Nucleolar Pattern TNP SEAN Spindle Aron Pattern TNP SEAN Midbody Pattern TNP SEAN Centriole Pattern TNP SEAN Nuclear Dot Pattern TNP SEAN PCNA Pattern TNP SEAN Nuclear Membr Pat TNP SEAN Speckled Pattern 1:640 H SEAN Centromere Pattern TNP Double Strand DNA Ab Lyme Screen IgG & IgM Lyme IgM Quantitation Hepatitis A IgM Ab Hep Bs Antigen Hep B Core IgM Ab Hepatitis C Antibody Monoscreen HIV 1&2 Antibody Screen HIV P24 Antigen 08/18/18 08/18/18 08/18/18 05:30 05:30 07:25 WBC RBC Hgb Hct MCV MCH MCHC RDW Plt Count MPV Absolute Neuts (auto) Neutrophils % Neutrophils % (Manual) Band Neutrophils % Lymphocytes % Lymphocytes % (Manual) Monocytes % Monocytes % (Manual) Eosinophils % Eosinophils % (Manual) Basophils % Basophils % (Manual) Myelocytes % (Man) Promyelocytes % (Man) Blast Cells % (Manual) Nucleated RBC % Metamyelocytes Hypochromia Toxic Granulation Dohle Bodies Platelet Estimate Polychromasia Poikilocytosis Basophilic Stippling Anisocytosis Microcytosis Macrocytosis Spherocytes Sickle Cells Target Cells Tear Drop Cells Ovalocytes Stomatocytes Helmet Cells Huang-[place] Bodies [place] Rings [place] Cells Acanthocytes (Spur) Rouleaux Fragmented RBCs Schistocytes ESR Retic Count 0.38 L Sickle Cell Screen PT with INR INR PTT (Actin FS) Sodium Potassium Chloride Carbon Dioxide Anion Gap BUN Creatinine Creat Clearance w eGFR Random Glucose Lactic Acid 1.9 Calcium Phosphorus Magnesium Iron TIBC Iron Saturation Ferritin Total Bilirubin AST ALT Alkaline Phosphatase LD Total Cancelled Creatine Kinase C-Reactive Protein Total Protein Albumin Vitamin B12 Vitamin D 25-Hydroxy Folate Folate Hemolysate TSH Free T4 Beta HCG, Quant Urine Color Urine Appearance Urine pH Ur Specific [place] Urine Protein Urine Glucose (UA) Urine Ketones Urine Blood Urine Nitrite Urine Bilirubin Urine Urobilinogen Ur Leukocyte Esterase Urine WBC (Auto) Urine RBC (Auto) Ur Epithelial Cells Hyaline Casts Urine HCG, Qual Random Vancomycin Opiates Screen Methadone Screen Barbiturate Screen Phencyclidine Screen Ur Amphetamines Screen MDMA (Ecstasy) Screen Benzodiazepines Screen Cocaine Screen U Marijuana (THC) Screen IgG IgA IgM SEAN Screen SEAN Homogeneous Pattern SEAN Nucleolar Pattern SEAN Spindle Aron Pattern SEAN Midbody Pattern SEAN Centriole Pattern SEAN Nuclear Dot Pattern SEAN PCNA Pattern SEAN Nuclear Membr Pat SEAN Speckled Pattern SEAN Centromere Pattern Double Strand DNA Ab Lyme Screen IgG & IgM Lyme IgM Quantitation Hepatitis A IgM Ab Hep Bs Antigen Hep B Core IgM Ab Hepatitis C Antibody Monoscreen HIV 1&2 Antibody Screen HIV P24 Antigen 08/18/18 08/18/18 08/18/18 07:25 07:25 07:25 WBC RBC Hgb Hct 33.4 L MCV MCH MCHC RDW Plt Count MPV Absolute Neuts (auto) Neutrophils % Neutrophils % (Manual) Band Neutrophils % Lymphocytes % Lymphocytes % (Manual) Monocytes % Monocytes % (Manual) Eosinophils % Eosinophils % (Manual) Basophils % Basophils % (Manual) Myelocytes % (Man) Promyelocytes % (Man) Blast Cells % (Manual) Nucleated RBC % Metamyelocytes Hypochromia Toxic Granulation Dohle Bodies Platelet Estimate Polychromasia Poikilocytosis Basophilic Stippling Anisocytosis Microcytosis Macrocytosis Spherocytes Sickle Cells Target Cells Tear Drop Cells Ovalocytes Stomatocytes Helmet Cells [place] Bodies [place] Rings [place] Cells Acanthocytes (Spur) Rouleaux Fragmented RBCs Schistocytes ESR Retic Count Sickle Cell Screen PT with INR INR PTT (Actin FS) Sodium Potassium Chloride Carbon Dioxide Anion Gap BUN Creatinine Creat Clearance w eGFR Random Glucose Lactic Acid Calcium Phosphorus Magnesium Iron TIBC Iron Saturation Ferritin Total Bilirubin AST ALT Alkaline Phosphatase LD Total 336 H Creatine Kinase C-Reactive Protein Total Protein Albumin Vitamin B12 1754 H Cancelled Vitamin D 25-Hydroxy Folate 1225 Folate Hemolysate 409.1 TSH 0.42 Free T4 1.05 Beta HCG, Quant Urine Color Urine Appearance Urine pH Ur Specific [place] Urine Protein Urine Glucose (UA) Urine Ketones Urine Blood Urine Nitrite Urine Bilirubin Urine Urobilinogen Ur Leukocyte Esterase Urine WBC (Auto) Urine RBC (Auto) Ur Epithelial Cells Hyaline Casts Urine HCG, Qual Random Vancomycin Opiates Screen Methadone Screen Barbiturate Screen Phencyclidine Screen Ur Amphetamines Screen MDMA (Ecstasy) Screen Benzodiazepines Screen Cocaine Screen U Marijuana (THC) Screen IgG IgA IgM SEAN Screen SEAN Homogeneous Pattern SEAN Nucleolar Pattern SEAN Spindle Aron Pattern SEAN Midbody Pattern SEAN Centriole Pattern SEAN Nuclear Dot Pattern SEAN PCNA Pattern SEAN Nuclear Membr Pat SEAN Speckled Pattern SEAN Centromere Pattern Double Strand DNA Ab Lyme Screen IgG & IgM Lyme IgM Quantitation Hepatitis A IgM Ab Hep Bs Antigen Hep B Core IgM Ab Hepatitis C Antibody Monoscreen HIV 1&2 Antibody Screen HIV P24 Antigen 08/18/18 08/18/18 08/18/18 09:00 11:00 11:40 WBC RBC Hgb Hct MCV MCH MCHC RDW Plt Count MPV Absolute Neuts (auto) Neutrophils % Neutrophils % (Manual) Band Neutrophils % Lymphocytes % Lymphocytes % (Manual) Monocytes % Monocytes % (Manual) Eosinophils % Eosinophils % (Manual) Basophils % Basophils % (Manual) Myelocytes % (Man) Promyelocytes % (Man) Blast Cells % (Manual) Nucleated RBC % Metamyelocytes Hypochromia Toxic Granulation Dohle Bodies Platelet Estimate Polychromasia Poikilocytosis Basophilic Stippling Anisocytosis Microcytosis Macrocytosis Spherocytes Sickle Cells Target Cells Tear Drop Cells Ovalocytes Stomatocytes Helmet Cells [place] Bodies [place] Rings [place] Cells Acanthocytes (Spur) Rouleaux Fragmented RBCs Schistocytes ESR Retic Count Sickle Cell Screen PT with INR INR PTT (Actin FS) Sodium Potassium Chloride Carbon Dioxide Anion Gap BUN Creatinine Creat Clearance w eGFR Random Glucose Lactic Acid Calcium Phosphorus Magnesium Iron TIBC Iron Saturation Ferritin Total Bilirubin AST ALT Alkaline Phosphatase LD Total Creatine Kinase 57 C-Reactive Protein Total Protein Albumin Vitamin B12 Vitamin D 25-Hydroxy 35.7 Folate Folate Hemolysate TSH Free T4 Beta HCG, Quant Urine Color Urine Appearance Urine pH Ur Specific [place] Urine Protein Urine Glucose (UA) Urine Ketones Urine Blood Urine Nitrite Urine Bilirubin Urine Urobilinogen Ur Leukocyte Esterase Urine WBC (Auto) Urine RBC (Auto) Ur Epithelial Cells Hyaline Casts Urine HCG, Qual Random Vancomycin Opiates Screen Negative Methadone Screen Negative Barbiturate Screen Negative Phencyclidine Screen Negative Ur Amphetamines Screen Negative MDMA (Ecstasy) Screen Negative Benzodiazepines Screen Negative Cocaine Screen Negative U Marijuana (THC) Screen Negative IgG IgA IgM SEAN Screen SEAN Homogeneous Pattern SEAN Nucleolar Pattern SEAN Spindle Aron Pattern SEAN Midbody Pattern SEAN Centriole Pattern SEAN Nuclear Dot Pattern SEAN PCNA Pattern SEAN Nuclear Membr Pat SEAN Speckled Pattern SEAN Centromere Pattern Double Strand DNA Ab 2 Lyme Screen IgG & IgM Lyme IgM Quantitation Hepatitis A IgM Ab Hep Bs Antigen Hep B Core IgM Ab Hepatitis C Antibody Monoscreen HIV 1&2 Antibody Screen HIV P24 Antigen 08/19/18 08/19/18 08/19/18 06:30 06:30 06:30 WBC 3.3 L RBC 4.32 Hgb 11.2 Hct 34.4 MCV 79.6 L MCH 26.0 MCHC 32.7 RDW 12.8 Plt Count 259 D MPV 7.8 Absolute Neuts (auto) 2.3 Neutrophils % 68.4 D Neutrophils % (Manual) Band Neutrophils % Lymphocytes % 24.9 D Lymphocytes % (Manual) Monocytes % 6.3 D Monocytes % (Manual) Eosinophils % 0.0 Eosinophils % (Manual) Basophils % 0.4 D Basophils % (Manual) Myelocytes % (Man) Promyelocytes % (Man) Blast Cells % (Manual) Nucleated RBC % 0 Metamyelocytes Hypochromia Toxic Granulation Dohle Bodies Platelet Estimate Polychromasia Poikilocytosis Basophilic Stippling Anisocytosis Microcytosis Macrocytosis Spherocytes Sickle Cells Target Cells Tear Drop Cells Ovalocytes Stomatocytes Helmet Cells [place] Bodies [place] Rings [place] Cells Acanthocytes (Spur) Rouleaux Fragmented RBCs Schistocytes ESR Retic Count Sickle Cell Screen PT with INR INR PTT (Actin FS) Sodium 140 Potassium 4.7 Chloride 111 H Carbon Dioxide 22 Anion Gap 8 BUN 10 Creatinine 0.6 Creat Clearance w eGFR > 60 Random Glucose 77 Lactic Acid Calcium 8.7 Phosphorus Magnesium Iron 79 TIBC 272 Iron Saturation 29 Ferritin Total Bilirubin 0.2 AST 190 H ALT 229 H Alkaline Phosphatase 136 H LD Total Creatine Kinase C-Reactive Protein Total Protein 6.4 Albumin 2.6 L Vitamin B12 Vitamin D 25-Hydroxy Folate Folate Hemolysate TSH Free T4 Beta HCG, Quant Urine Color Urine Appearance Urine pH Ur Specific [place] Urine Protein Urine Glucose (UA) Urine Ketones Urine Blood Urine Nitrite Urine Bilirubin Urine Urobilinogen Ur Leukocyte Esterase Urine WBC (Auto) Urine RBC (Auto) Ur Epithelial Cells Hyaline Casts Urine HCG, Qual Random Vancomycin Opiates Screen Methadone Screen Barbiturate Screen Phencyclidine Screen Ur Amphetamines Screen MDMA (Ecstasy) Screen Benzodiazepines Screen Cocaine Screen U Marijuana (THC) Screen IgG IgA IgM SEAN Screen SEAN Homogeneous Pattern SEAN Nucleolar Pattern SEAN Spindle Aron Pattern SEAN Midbody Pattern SEAN Centriole Pattern SEAN Nuclear Dot Pattern SEAN PCNA Pattern SEAN Nuclear Membr Pat SEAN Speckled Pattern SEAN Centromere Pattern Double Strand DNA Ab Lyme Screen IgG & IgM Lyme IgM Quantitation Hepatitis A IgM Ab Hep Bs Antigen Hep B Core IgM Ab Hepatitis C Antibody Monoscreen HIV 1&2 Antibody Screen HIV P24 Antigen 08/19/18 08/19/18 08/19/18 06:30 06:30 06:30 WBC RBC Hgb Hct MCV MCH MCHC RDW Plt Count MPV Absolute Neuts (auto) Neutrophils % Neutrophils % (Manual) Band Neutrophils % Lymphocytes % Lymphocytes % (Manual) Monocytes % Monocytes % (Manual) Eosinophils % Eosinophils % (Manual) Basophils % Basophils % (Manual) Myelocytes % (Man) Promyelocytes % (Man) Blast Cells % (Manual) Nucleated RBC % Metamyelocytes Hypochromia Toxic Granulation Dohle Bodies Platelet Estimate Polychromasia Poikilocytosis Basophilic Stippling Anisocytosis Microcytosis Macrocytosis Spherocytes Sickle Cells Target Cells Tear Drop Cells Ovalocytes Stomatocytes Helmet Cells Huang-[place] Bodies [place] Rings [place] Cells Acanthocytes (Spur) Rouleaux Fragmented RBCs Schistocytes ESR Retic Count Sickle Cell Screen Negative PT with INR INR PTT (Actin FS) Sodium Potassium Chloride Carbon Dioxide Anion Gap BUN Creatinine Creat Clearance w eGFR Random Glucose Lactic Acid Calcium Phosphorus Magnesium Iron TIBC Iron Saturation Ferritin 224.6 Total Bilirubin AST ALT Alkaline Phosphatase LD Total Creatine Kinase C-Reactive Protein Total Protein Albumin Vitamin B12 Vitamin D 25-Hydroxy Folate Folate Hemolysate TSH Free T4 Beta HCG, Quant Urine Color Urine Appearance Urine pH Ur Specific [place] Urine Protein Urine Glucose (UA) Urine Ketones Urine Blood Urine Nitrite Urine Bilirubin Urine Urobilinogen Ur Leukocyte Esterase Urine WBC (Auto) Urine RBC (Auto) Ur Epithelial Cells Hyaline Casts Urine HCG, Qual Random Vancomycin Opiates Screen Methadone Screen Barbiturate Screen Phencyclidine Screen Ur Amphetamines Screen MDMA (Ecstasy) Screen Benzodiazepines Screen Cocaine Screen U Marijuana (THC) Screen IgG 1503 IgA 226 IgM 88 SEAN Screen SEAN Homogeneous Pattern SEAN Nucleolar Pattern SEAN Spindle Aron Pattern SEAN Midbody Pattern SEAN Centriole Pattern SEAN Nuclear Dot Pattern SEAN PCNA Pattern SEAN Nuclear Membr Pat SEAN Speckled Pattern SEAN Centromere Pattern Double Strand DNA Ab Lyme Screen IgG & IgM Lyme IgM Quantitation Hepatitis A IgM Ab Hep Bs Antigen Hep B Core IgM Ab Hepatitis C Antibody Monoscreen HIV 1&2 Antibody Screen HIV P24 Antigen 08/19/18 08/20/18 15:45 06:25 WBC 5.3 RBC 4.35 Hgb 11.2 Hct 34.3 MCV 78.9 L MCH 25.7 MCHC 32.5 RDW 12.7 Plt Count 292 MPV 8.0 Absolute Neuts (auto) 3.0 Neutrophils % 55.8 Neutrophils % (Manual) Band Neutrophils % Lymphocytes % 36.1 D Lymphocytes % (Manual) Monocytes % 7.4 Monocytes % (Manual) Eosinophils % 0.0 Eosinophils % (Manual) Basophils % 0.7 Basophils % (Manual) Myelocytes % (Man) Promyelocytes % (Man) Blast Cells % (Manual) Nucleated RBC % 0 Metamyelocytes Hypochromia Toxic Granulation Dohle Bodies Platelet Estimate Polychromasia Poikilocytosis Basophilic Stippling Anisocytosis Microcytosis Macrocytosis Spherocytes Sickle Cells Target Cells Tear Drop Cells Ovalocytes Stomatocytes Helmet Cells [place] Bodies [place] Rings [place] Cells Acanthocytes (Spur) Rouleaux Fragmented RBCs Schistocytes ESR Retic Count Sickle Cell Screen PT with INR INR PTT (Actin FS) Sodium Potassium Chloride Carbon Dioxide Anion Gap BUN Creatinine Creat Clearance w eGFR Random Glucose Lactic Acid Calcium Phosphorus Magnesium Iron TIBC Iron Saturation Ferritin Total Bilirubin AST ALT Alkaline Phosphatase LD Total Creatine Kinase C-Reactive Protein Total Protein Albumin Vitamin B12 Vitamin D 25-Hydroxy Folate Folate Hemolysate TSH Free T4 Beta HCG, Quant Urine Color Urine Appearance Urine pH Ur Specific [place] Urine Protein Urine Glucose (UA) Urine Ketones Urine Blood Urine Nitrite Urine Bilirubin Urine Urobilinogen Ur Leukocyte Esterase Urine WBC (Auto) Urine RBC (Auto) Ur Epithelial Cells Hyaline Casts Urine HCG, Qual Random Vancomycin Opiates Screen Methadone Screen Barbiturate Screen Phencyclidine Screen Ur Amphetamines Screen MDMA (Ecstasy) Screen Benzodiazepines Screen Cocaine Screen U Marijuana (THC) Screen IgG IgA IgM SEAN Screen SEAN Homogeneous Pattern SEAN Nucleolar Pattern SEAN Spindle Aron Pattern SEAN Midbody Pattern SEAN Centriole Pattern SEAN Nuclear Dot Pattern SEAN PCNA Pattern SEAN Nuclear Membr Pat SEAN Speckled Pattern SEAN Centromere Pattern Double Strand DNA Ab Lyme Screen IgG & IgM Lyme IgM Quantitation Hepatitis A IgM Ab Hep Bs Antigen Hep B Core IgM Ab Hepatitis C Antibody Monoscreen Negative HIV 1&2 Antibody Screen HIV P24 Antigen Assessment/Plan 28 y.o. female with history of possible Lupus presenting with shortness of breath, tingling/itching while on antibiotics for recent sore throat/fever/ generalized body aches , possible influenza and for acne. Noted to have leukopenia, elevated LFTs and mild hypotension and tachycardia. Developed shock post dose of Zosyn -- rash/hypotension resolved -- resolved fever, leukopenia -- suggest doxycycline p.o. x 5 more days -- f/u serologies, results pending -- f/u with Rheumatology pt for discharge today appears clinically stable at this time
[2018-08-20] MEDS ORDERED: FLUCONAZOLE 50 MG TABLET PO ONE (12:00)
[2018-08-20 12:31] VITALS: BP 120/71; PULSE 67; TEMP 98.3
[2018-08-21 16:25] LABS: E. chaff IgG Negative (Neg:<1:64)
[2018-08-22 00:08] LABS: ALDOLASE 10.4 U/L (3.3-10.3)
[2018-08-22 00:08] LABS: BABESIA MICROTI ANTIBODY IGG <1:10 (Neg:<1:10); BABESIA MICROTI ANTIBODY IGM <1:10 (Neg:<1:10)
[2018-08-23 00:12] LABS: HGB SOLUBILITY Negative (Negative); Hgb A 97.4 % (96.4-98.8); Hgb C 0 % (0.0); Hgb F 0 % (0.0-2.0); Hgb S 0 % (0.0)
== END 2018-08-20 12:15 | disposition home or self-care (01) | DRG 916 ==
LOC: SUATTDRO 11:02 → JER 11:02 → JERBED 14:56 → JICU 18:15 → J5S 08-18 20:10
PROVIDERS: ADMIT Hospitalist; ATTEND Nurse Practitioner Acute Care
DX: T88.6XXA Anaphylactic reaction due to adverse effect of correct drug or medicament properly administered, initial encounter (principal); T36.0X5A Adverse effect of penicillins, initial encounter; B19.10 Unspecified viral hepatitis B without hepatic coma; L27.1 Localized skin eruption due to drugs and medicaments taken internally; M32.9 Systemic lupus erythematosus, unspecified; L70.9 Acne, unspecified; R50.9 Fever, unspecified; D70.9 Neutropenia, unspecified; R74.0 Nonspecific elevation of levels of transaminase and lactic acid dehydrogenase [LDH]; R94.5 Abnormal results of liver function studies; R59.9 Enlarged lymph nodes, unspecified; R00.0 Tachycardia, unspecified; R16.0 Hepatomegaly, not elsewhere classified; R16.1 Splenomegaly, not elsewhere classified; Y84.8 Other medical procedures as the cause of abnormal reaction of the patient, or of later complication, without mention of misadventure at the time of the procedure
CPT/HCPCS: 36415; 70450-TC; 71045-TC-FY; 76700-TC; 80053; 80074; 80307; 81003; 81015; 82085; 82306; 82550; 82607; 82728; 82747; 82784; 83021; 83540; 83550; 83605; 83615; 83735; 84100; 84439; 84443; 84702; 84703; 85014; 85025; 85044; 85610; 85651; 85660; 85730; 86038; 86140; 86160; 86162; 86225; 86235; 86308; 86618; 86664; 86666; 86753; 87040; 87070; 87086; 87207; 87389; 87430; 87804; 87899; 99282-25; G0480; J0131; J7030